=== PATIENT | male | born 1935 | race Hispanic/Latino ===

== ENCOUNTER 2018-01-08 11:45 | Emergency (ER) | payer MEDICARE, OTHER ==
[2018-01-08 11:46] VITALS: PULSE 86
[2018-01-08 12:07] VITALS: BMI 24.3
--- NOTE | 2018-01-08 12:20 | ED PDOC ---
Arrival/HPI - General Chief Complaint: Trauma Time Seen by Provider: 01/08/18 11:47 Historian: Patient - History of Present Illness Narrative History of Present Illness (Text): 01/08/18 12:17 82yo male with PMHx of Alzheimer's present with complaint of scalp laceration s/ p trauma. The daughter and the by the bedside states patient hit his head on a cabinet, when he tried to stand up from a sitting position. The daughter is not sure of LOC. Pt is not UTD with his TD vaccine. Pt is a poor historian, not able to tell if he had LOC. Past Medical History - Provider Review Nursing Documentation Reviewed: Yes - Infectious Disease Hx of Infectious Diseases: None - Tetanus Immunization Tetanus Immunization: Unknown - Cardiac Hx Cardiac Disorders: Yes - Pulmonary Hx Respiratory Disorders: Yes Hx Bronchitis: Yes - Neurological Hx Neurological Disorder: Yes Hx Alzheimer's Disease: Yes Hx Dementia: Yes - HEENT Hx HEENT Disorder: No - Renal Hx Renal Disorder: No - Endocrine/Metabolic Hx Endocrine Disorders: No - Hematological/Oncological Hx Blood Disorders: No - Integumentary Hx Dermatological Disorder: No - Musculoskeletal/Rheumatological Hx Falls: No - Gastrointestinal Hx Gastrointestinal Disorders: Yes Hx Colostomy: Yes - Genitourinary/Gynecological Hx Reproductive Disorders: No - Psychiatric Hx Psychophysiologic Disorder: No Hx Substance Use: No - Surgical History Other/Comment: coloctomy,henia repai,right kidney - Anesthesia Hx Anesthesia: Yes Hx Anesthesia Reactions: No Hx Malignant Hyperthermia: No - Suicidal Assessment Feels Threatened In Home Enviroment: No Family/Social History - Physician Review Nursing Documentation Reviewed: Yes Family/Social History: Unknown Family HX Smoking Status: Former Smoker Hx Alcohol Use: No Hx Substance Use: No Allergies/Home Meds Allergies/Adverse Reactions: Allergies No Known Allergies Allergy (Verified 09/01/14 16:44) Home Medications: Home Meds Medication Instructions Recorded Confirmed Rivastigmine 9.5 mg/24 hr [Exelon 9.5 mg TD DAILY 09/01/14 01/08/18 9.5 mg/24 hr Patch] Aspirin [Ecotrin] 325 mg PO DAILY 01/08/18 01/08/18 D3 1000 1,000 iu PO DAILY 01/08/18 01/08/18 Folic Acid 1 mg PO DAILY 01/08/18 01/08/18 Lorazepam [Ativan] 2 mg PO ONCE 01/08/18 01/08/18 Memantine HCl [Namenda Xr] 28 mg PO DAILY 01/08/18 01/08/18 [place]-3 Fatty Acids/Fish Oil [Fish 1,000 mg PO DAILY 01/08/18 01/08/18 Oil 1,000 mg Softgel] Sertraline [Zoloft] 25 mg PO DAILY 01/08/18 01/08/18 Simvastatin [Zocor] 20 mg PO DAILY 01/08/18 01/08/18 Vanda C 1,000 mg PO DAILY 01/08/18 01/08/18 l-Mefol/A-Cyst/Meb12/Algal Oil 1 tab PO DAILY 01/08/18 01/08/18 [Cerefolinnac] Review of Systems - Physician Review All systems were reviewed & negative as marked: Yes - Review of Systems Constitutional: Normal Eyes: Normal ENT: Normal Respiratory: Normal Cardiovascular: Normal Gastrointestinal: Normal Genitourinary Male: Normal Musculoskeletal: Normal Skin: Laceration (scalp) Neurological: Normal Endocrine: Normal Hemo/Lymphatic: Normal Psychiatric: Normal Physical Exam Vital Signs Reviewed: Yes Vital Signs Temp Pulse Resp BP Pulse Ox 01/08/18 13:45 64 18 148/71 98 01/08/18 12:20 98.0 F 68 18 150/78 98 Temperature: Afebrile Blood Pressure: Normal Pulse: Regular Respiratory Rate: Normal Appearance: Positive for: Well-Appearing, Non-Toxic, Comfortable Pain Distress: None Mental Status: Positive for: Alert and Oriented X 3 - Systems Exam Head: Present: Atraumatic, Normocephalic Pupils: Present: PERRL Extroacular Muscles: Present: EOMI Conjunctiva: Present: Normal Mouth: Present: Moist Mucous Membranes Neck: Present: Normal Range of Motion Respiratory/Chest: Present: Clear to Auscultation, Good Air Exchange. No: Respiratory Distress, Accessory Muscle Use Cardiovascular: Present: Regular Rate and Rhythm, Normal S1, S2. No: Murmurs Abdomen: Present: Normal Bowel Sounds. No: Tenderness, Distention, Peritoneal Signs Back: Present: Normal Inspection Upper Extremity: Present: Normal Inspection. No: Cyanosis, Edema Lower Extremity: Present: Normal Inspection. No: Edema Neurological: Present: GCS=15, CN II-XII Intact, Speech Normal, Motor Func Grossly Intact, Normal Sensory Function, Other (No focal neurological deficit) Skin: Present: Warm, Dry, Normal Color, Laceration (3.0cm linear laceration on frontal scalp and superficial bruise also noted on the frontal scalp). No: Rashes Psychiatric: Present: Alert, Normal Insight, Normal Concentration. No: Oriented x 3 (2) Medical Decision Making ED Course and Treatment: 01/08/18 19:49 PT in ED for stated history. He as neurologically intact in ED. Laceration was irrigated with NS and approximated with 7 dinah. Pt tolerated . Bacitracine applied and dressed. - RAD Interpretation Radiology Orders: 01/08/18 12:15 HEAD W/O CONTRAST [CT] Stat - Medication Orders Current Medication Orders: Discontinued Medications Acetaminophen (Tylenol 325mg Tab) 650 mg PO STAT STA Stop: 01/08/18 12:16 Last Admin: 01/08/18 12:38 Dose: 650 mg MAR Pain/Vitals Document 01/08/18 12:38 EQ (Rec: 01/08/18 12:38 EQ [id number]) Pain Reassessment Is This A Pain ReAssessment? No Sleep Is patient sleeping during reassessment? No Presence of Pain Presence of Pain Yes Pain Scale Used Pain Scale Used Numeric Location Pain Location Body Medical Technologist Generalist Tetanus/Reduced Diphtheria/Acell Pertussis (Boostrix Vaccine Inj) 0.5 ml IM .ONCE ONE Stop: 01/08/18 13:32 Last Admin: 01/08/18 13:49 Dose: 0.5 ml Immunization Registry Document 01/08/18 13:49 EQ (Rec: 01/08/18 13:49 EQ [id number]) Immunization Registry Consent Date 01/08/18 Procedure: Wound Repair - Consent Obtained Consent obtained: Verbal - Performed by Performed by: Mid-level Provider - Indications Indication(s):: Laceration - Location Location:: Scalp Shape:: Linear Dimensions Length cm: 3.0 - Debris Debris:: None - Complexity Complexity:: Intermediate (2 layer) - Wound repair method [place]:: Tissue glue (7staples) - Muscle repiar layer closed with Muscle repair layer closed with:: Wound well approximated, Abx ointment applied , Tetanus ordered - Patient tolerated procedure Patient Tolerated Procedure:: Well Disposition/Present on Arrival - Present on Arrival Any Indicators Present on Arrival: No History of DVT/PE: No History of Uncontrolled Diabetes: No Urinary Catheter: No History of Decub. Ulcer: No History Surgical Site Infection Following: None - Disposition Have Diagnosis and Disposition been Completed?: Yes Diagnosis: Scalp laceration Disposition: HOME/ ROUTINE Disposition Time: 13:30 Patient Plan: Discharge Condition: STABLE Discharge Instructions (ExitCare): Laceration Repair With [place] (DC) Additional Instructions: Keep wound clean and dry Follow up with your Doctor in 5 to 6days for dinah removal Return to ED for purulent discharge, fever, redness Referrals: Star Sosa MD [Primary Care Provider] - Follow up with primary Forms: [place] (Arabic)
[2018-01-08 12:39] VITALS: RESP 18; TEMP 98; O2SAT 98
--- NOTE | 2018-01-08 12:43 | CT ---
PROCEDURE: CT HEAD WITHOUT CONTRAST. HISTORY: head injury COMPARISON: 09/01/2014 TECHNIQUE: Axial computed tomography images were obtained through the head/brain without intravenous contrast. Radiation dose: Total exam DLP = 903 mGy-cm. This CT exam was performed using one or more of the following dose reduction techniques: Automated exposure control, adjustment of the mA and/or kV according to patient size, and/or use of iterative reconstruction technique. FINDINGS: HEMORRHAGE: No intracranial hemorrhage. BRAIN: No mass effect or edema. Moderate atrophy VENTRICLES: Unremarkable. No hydrocephalus. CALVARIUM: Unremarkable. PARANASAL SINUSES: Unremarkable as visualized. No significant inflammatory changes. MASTOID AIR CELLS: Unremarkable as visualized. No inflammatory changes. OTHER FINDINGS: None. IMPRESSION: No acute findings
[2018-01-08] MEDS ORDERED: TDAP Vaccine 0.5 mL Syr IM ONE (13:31)
[2018-01-08 13:45] VITALS: BP 148/71; PULSE 64
== END 2018-01-08 13:59 | disposition home or self-care (01) ==
LOC: ED 11:45
DX: S01.01XA Laceration without foreign body of scalp, initial encounter (principal); W22.8XXA Striking against or struck by other objects, initial encounter; G30.9 Alzheimer's disease, unspecified; Z87.891 Personal history of nicotine dependence; Z93.3 Colostomy status; Z23 Encounter for immunization

== ENCOUNTER 2018-12-14 13:57 | Inpatient (IN) | payer MEDICARE, OTHER ==
[2018-12-14 13:57] VITALS: PULSE 86
[2018-12-14 14:02] VITALS: BMI 23.5
[2018-12-14] MEDS ORDERED: Albuterol-Ipratrop 3 mg / 0.5 (3 ml) UD IH STA (14:23)
--- NOTE | 2018-12-14 14:28 | ED PDOC ---
Arrival/HPI - General Chief Complaint: Cough, Cold, Congestion Time Seen by Provider: 12/14/18 14:05 Historian: Patient, Spouse, Brake Repairer - History of Present Illness Time/Duration: Other (2 days) Symptom Onset: Gradual Symptom Course: Worsening Severity Level: Moderate Associated Symptoms (Text): 12/14/18 14:24 History of dementia and a poor historian. Patient speaks Wolof. translates. She reports a 2-day history of a cough congestion URI shortness of breath and increasing weakness and fatigue with an altered mental status today. Denies fever. No vomiting or diarrhea. No sputum production. No travel or exposure. Past Medical History - Infectious Disease Hx of Infectious Diseases: None - Tetanus Immunization Tetanus Immunization: Unknown - Cardiac Hx Cardiac Disorders: Yes - Pulmonary Hx Respiratory Disorders: Yes Hx Bronchitis: Yes - Neurological Hx Neurological Disorder: Yes Hx Alzheimer's Disease: Yes Hx Dementia: Yes - HEENT Hx HEENT Disorder: No - Renal Hx Renal Disorder: No - Endocrine/Metabolic Hx Endocrine Disorders: No - Hematological/Oncological Hx Blood Disorders: No - Integumentary Hx Dermatological Disorder: No - Musculoskeletal/Rheumatological Hx Falls: No - Gastrointestinal Hx Gastrointestinal Disorders: Yes Hx Colostomy: Yes - Genitourinary/Gynecological Hx Reproductive Disorders: No - Psychiatric Hx Psychophysiologic Disorder: No Hx Substance Use: No - Surgical History Other/Comment: coloctomy,henia repai,right kidney - Anesthesia Hx Anesthesia: Yes Hx Anesthesia Reactions: No Hx Malignant Hyperthermia: No - Suicidal Assessment Feels Threatened In Home Enviroment: No Family/Social History - Physician Review Nursing Documentation Reviewed: Yes Family/Social History: Unknown Family HX Smoking Status: Former Smoker Hx Alcohol Use: No Hx Substance Use: No Allergies/Home Meds Allergies/Adverse Reactions: Allergies No Known Allergies Allergy (Verified 09/01/14 16:44) Home Medications: Home Meds Medication Instructions Recorded Confirmed Rivastigmine 9.5 mg/24 hr [Exelon 9.5 mg TD DAILY 09/01/14 12/14/18 9.5 mg/24 hr Patch] Aspirin [Ecotrin] 325 mg PO DAILY 01/08/18 12/14/18 D3 1000 1,000 iu PO DAILY 01/08/18 01/08/18 Folic Acid 1 mg PO DAILY 01/08/18 12/14/18 Memantine HCl [Namenda Xr] 28 mg PO DAILY 01/08/18 12/14/18 [place]-3 Fatty Acids/Fish Oil [Fish 1,000 mg PO DAILY 01/08/18 12/14/18 Oil 1,000 mg Softgel] Sertraline [Zoloft] 75 mg PO DAILY 01/08/18 12/14/18 Simvastatin [Zocor] 20 mg PO DAILY 01/08/18 12/14/18 Vanda C 1,000 mg PO DAILY 01/08/18 01/08/18 l-Mefol/A-Cyst/Meb12/Algal Oil 1 tab PO DAILY 01/08/18 12/14/18 [Cerefolinnac] Review of Systems - Review of Systems Systems not reviewed;Unavailable: Dementia Physical Exam Vital Signs Temp Pulse Resp BP Pulse Ox 12/14/18 14:05 97.9 F 90 16 98/64 L 95 Temperature: Afebrile Blood Pressure: Hypotensive Pulse: Regular Respiratory Rate: Normal Appearance: Positive for: Well-Appearing, Non-Toxic, Comfortable Pain Distress: None Mental Status: Positive for: Confused - Systems Exam Head: Present: Atraumatic, Normocephalic Pupils: Present: PERRL Extroacular Muscles: Present: EOMI Conjunctiva: Present: Normal Ears: Present: NORMAL TM, Normal Canal. No: Erythema, TM Bulging Mouth: Present: Moist Mucous Membranes Pharnyx: No: ERYTHEMA, EXUDATE, TONSILS ENLARGED Respiratory/Chest: Present: Decreased Breath Sounds. No: Respiratory Distress, Accessory Muscle Use, Wheezes, Rales, Retracting, Rhonchi, Tachypneic, Tender to Palpation Cardiovascular: Present: Normal S1, S2, Irregular Rhythm. No: Murmurs Abdomen: No: Tenderness, Distention, Peritoneal Signs, Rebound, Guarding Upper Extremity: Present: Normal Inspection. No: Cyanosis, Edema Lower Extremity: Present: Normal Inspection. No: Edema Neurological: Present: GCS=15, CN II-XII Intact, Speech Normal, Motor Func Grossly Intact Skin: Present: Warm, Dry, Pale. No: Rashes Medical Decision Making ED Course and Treatment: 12/14/18 14:26 EKG shows atrial fibrillation rate approximately [address] or T wave changes. 12/14/18 16:18 Dr. Garcia will admit to Dr. Sosa's service on telemetry observation. 12/14/18 16:38 Procedure: Chest X-ray Dictator: Ishmael Corral Impression: No active disease. - RAD Interpretation Radiology Orders: 12/14/18 14:22 CHEST PORTABLE [RAD] Stat - Medication Orders Current Medication Orders: Albuterol/Ipratropium (Duoneb 3 Mg/0.5 Mg (3 Ml) Ud) 3 ml IH ONCE STA Stop: 12/14/18 14:24 Disposition/Present on Arrival - Present on Arrival Any Indicators Present on Arrival: No History of DVT/PE: No History of Uncontrolled Diabetes: No Urinary Catheter: No History of Decub. Ulcer: No History Surgical Site Infection Following: None - Disposition Have Diagnosis and Disposition been Completed?: Yes Diagnosis: Atrial fibrillation, Congestive heart failure, Altered mental status, Dyspnea Disposition: HOSPITALIZED Disposition Time: 16:20 Patient Plan: Observation, Telemetry Patient Problems: Current Active Problems Problem Status Onset Altered mental status Acute Atrial fibrillation Acute Congestive heart failure Acute Dyspnea Acute Condition: FAIR
[2018-12-14 14:55] LABS: BASO # 0.02 K/mm3 (0.0-2.0); BASO % 0.2 % (0.0-3.0); EOS % 0.3 % (1.5-5.0); HEMOGLOBIN 13.1 g/dL (14.0-18.0); LYMPH # 1.1 (1.2-3.4); LYMPH % 8.3 % (22.0-35.0); MEAN CELL VOLUME 96.9 fl (80.0-105.0); MEAN CORPUSCULAR HEMOGLOBIN 31.5 pg (25.0-35.0); MEAN CORPUSCULAR HGB CONC 32.5 g/dl (31.0-37.0); MEAN PLATELET VOLUME 11.3 fl (7.0-11.0); RBC 4.16 10^6/uL (3.5-6.1); WHITE BLOOD COUNT 13.1 10^3/uL (4.5-11.0)
[2018-12-14 15:04] LABS: INR 1.16; PARTIAL THROMBOPLASTIN TIME 36.1 Seconds (26.9-38.3); PROTHROMBIN TIME 12.9 SECONDS (9.4-12.5)
[2018-12-14 15:07] LABS: VENOUS BLOOD GAS BASE EXCESS 7.4 mmol/L (0.0-2.0); VENOUS BLOOD GAS PO2 34 mm/Hg (30-55); VENOUS BLOOD PH 7.36 (7.32-7.43)
[2018-12-14 15:10] LABS: ALBUMIN 3.9 g/dL (3.0-4.8); ALT/SGPT 18 U/L (7-56); AST/SGOT 31 U/L (17-59); BLOOD UREA NITROGEN 24 mg/dL (7-21); CALCIUM 9.4 mg/dL (8.4-10.5); GFR NON-AFRICAN AMERICAN > 60
[2018-12-14 15:18] LABS: TROPONIN I < 0.01 ng/mL
[2018-12-14 16:05] LABS: B-TYPE NATRIURETIC PEPTIDE 2980 pg/mL (0-450)
--- NOTE | 2018-12-14 16:13 | RAD ---
Date of service: 12/14/2018 HISTORY: Sepsis Patient COMPARISON: No prior. FINDINGS: LUNGS: No active pulmonary disease. PLEURA: No significant pleural effusion identified, no pneumothorax apparent. CARDIOVASCULAR: Aortic calcification Mild cardiomegaly. No pulmonary vascular congestion. OSSEOUS STRUCTURES: No significant abnormalities. VISUALIZED UPPER ABDOMEN: Normal. OTHER FINDINGS: None. IMPRESSION: No active disease.
[2018-12-14 16:34] LABS: URINE BILIRUBIN NEGATIVE (NEGATIVE); URINE BLOOD NEGATIVE (NEGATIVE); URINE GLUCOSE (UA) NEGATIVE (NEGATIVE); URINE LEUKOCYTE ESTERASE NEGATIVE Leu/uL (NEGATIVE); URINE PROTEIN NEGATIVE mg/dL (<30 mg/dL); URINE UROBILINOGEN 0.2 E.U./dL (<1 E.U./dL)
[2018-12-14 16:36] LABS: URINE APPEARANCE CLEAR (CLEAR); URINE COLOR YELLOW (YELLOW)
[2018-12-14] MEDS ORDERED: Influenza Vaccine 60 mcg/0.5 mL SYR (4YR UP) IM ONE (20:44)
[2018-12-14] MEDS ORDERED: Pneumococcal 23-Valent Vaccine IM ONE (20:44)
--- NOTE | 2018-12-14 23:22 | CARD ---
APPROVED REPORT Date of service: 12/14/2018 EKG Measurement Heart [id number] <Conclusion> Atrial fibrillation Left axis deviation Abnormal ECG
[2018-12-15 09:16] LABS: HEMOGLOBIN 14.1 g/dL (14.0-18.0); MEAN CELL VOLUME 96.8 fl (80.0-105.0); MEAN CORPUSCULAR HEMOGLOBIN 31.8 pg (25.0-35.0); MEAN CORPUSCULAR HGB CONC 32.8 g/dl (31.0-37.0); MEAN PLATELET VOLUME 11.5 fl (7.0-11.0); RBC 4.44 10^6/uL (3.5-6.1); RED CELL DISTRIBUTION WIDTH 13.9 % (11.5-14.5); WHITE BLOOD COUNT 13.7 10^3/uL (4.5-11.0)
[2018-12-15 09:32] LABS: ALBUMIN 4.2 g/dL (3.0-4.8); ALT/SGPT 24 U/L (7-56); AST/SGOT 35 U/L (17-59); BLOOD UREA NITROGEN 30 mg/dL (7-21); CALCIUM 9.9 mg/dL (8.4-10.5); GFR NON-AFRICAN AMERICAN > 60
[2018-12-15 09:42] LABS: TROPONIN I < 0.01 ng/mL
[2018-12-15] MEDS ORDERED: MEMANTINE HCL 28 MG PO SCH (10:00)
[2018-12-15] MEDS: cefTRIAXone 1 gm 1 GM/100 ML BAG IVPB SCH (10:18)
[2018-12-15] MEDS: Aspirin 325 mg EC Tablets PO SCH (10:19)
[2018-12-15] MEDS: Enoxaparin 40 mg Syringe SC SCH (10:19)
--- NOTE | 2018-12-15 10:21 | CP.PCM.HP ---
<Brian Tracey - Last Filed: 12/15/18 10:23> History of Present Illness - History of Present Illness History of Present Illness: H&P for Dr Garcia: 83-year-old male with past history of CHF, dementia, hyperlipidemia, colon cancer with colostomy, presents with cough, congestion, and weakness. Patient is a Amharic speaking and the at bedside translating. The patient's symptoms initially started 1 week ago and the coughing along with the weakness has gotten progressively worse. The cough is productive with green sputum. He denied any chest pain or shortness of breath. No fevers, chills, body aches at home. A complete 12 point ROS limited due to dementia PMH: As above PSH: Colostomy, hernia repair, pilonidal cyst Medications: Refer to MAR Allergies: No known allergies SH: Patient is a former smoker of 40 years, quit 18 years ago, denies any alcohol or drug use FH: Denies Present on Admission - Present on Admission Any Indicators Present on Admission: No Review of Systems - Review of Systems Systems not reviewed;Unavailable: Dementia Past Patient History - Infectious Disease Hx of Infectious Diseases: None - Tetanus Immunizations Tetanus Immunization: Unknown - Past Social History Smoking Status: Former Smoker - CARDIAC Hx Cardiac Disorders: Yes (afib) Hx Cardia Arrhythmia: Yes Hx Hypercholesterolemia: Yes - PULMONARY Hx Respiratory Disorders: Yes Hx Bronchitis: Yes Hx Chronic Obstructive Pulmonary Disease (COPD): Yes Hx Pneumonia: Yes - NEUROLOGICAL Hx Neurological Disorder: Yes Hx Alzheimer's Disease: Yes Hx Dementia: Yes - HEENT Hx HEENT Problems: No - RENAL Hx Chronic Kidney Disease: Yes Other/Comment: 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, 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 "ball of water" as stated by family that was in place of right kidney - ENDOCRINE/METABOLIC Hx Endocrine Disorders: No - HEMATOLOGICAL/ONCOLOGICAL Hx Blood Disorders: Yes Hx Cancer: Yes (colon ca dx 1984) Other/Comment: colon resection with colostomy 1984 followed by light therapy chemo injections - INTEGUMENTARY Hx Dermatological Problems: Yes Other/Comment: red buttocks no openings - MUSCULOSKELETAL/RHEUMATOLOGICAL Hx Musculoskeletal Disorders: Yes (rheumatoid arthritis) Hx Falls: Yes (past) Hx Unsteady Gait: Yes (human assistance) - GASTROINTESTINAL Hx Gastrointestinal Disorders: Yes Hx Colostomy: Yes (since 1984) - GENITOURINARY/GYNECOLOGICAL Hx Genitourinary Disorders: Yes Hx Incontinence: Yes (urine) Hx Prostate Problems: Yes (bph) - PSYCHIATRIC Hx Psychophysiologic Disorder: No Hx Substance Use: No - SURGICAL HISTORY Hx Surgeries: Yes Other/Comment: colostomy,hernia repair - ANESTHESIA Hx Anesthesia: Yes Hx Anesthesia Reactions: No Hx Malignant Hyperthermia: No Meds Allergies/Adverse Reactions: Allergies Allergy/AdvReac Type Severity Reaction Status Date / Time No Known Allergies Allergy Verified 09/01/14 16:44 Physical Exam - Constitutional Appears: No Acute Distress - Head Exam Head Exam: ATRAUMATIC, NORMOCEPHALIC - Eye Exam Eye Exam: EOMI, PERRL - ENT Exam ENT Exam: Mucous Membranes Moist - Respiratory Exam Respiratory Exam: Clear to Auscultation Bilateral, Rhonchi (L base). absent: Rales, Wheezes - Cardiovascular Exam Cardiovascular Exam: REGULAR RHYTHM, +S1, +S2 - GI/Abdominal Exam GI & Abdominal Exam: Normal Bowel Sounds, Soft. absent: Tenderness - Extremities Exam Extremities exam: Negative for: calf tenderness, pedal edema - Neurological Exam Neurological exam: Alert, CN II-XII Intact - Psychiatric Exam Psychiatric exam: Normal Mood - Skin Skin Exam: Dry, Warm Results - Vital Signs Recent Vital Signs: Last Vital Signs Temp 98.4 F 12/15/18 05:59 Pulse 86 12/15/18 05:59 Resp 18 12/15/18 05:59 BP 122/64 12/15/18 05:59 Pulse Ox 95 12/15/18 05:59 - Labs Result Diagrams: 12/15/18 09:00 12/15/18 09:00 Labs: Laboratory Results - last 24 hr 12/14/18 12/14/18 12/14/18 14:41 14:50 14:50 WBC 13.1 H RBC 4.16 Hgb 13.1 L Hct 40.3 L MCV 96.9 MCH 31.5 MCHC 32.5 RDW 14.0 Plt Count 182 MPV 11.3 H Neut % (Auto) 76.2 H Lymph % (Auto) 8.3 L [place] % (Auto) 15.0 H Eos % (Auto) 0.3 L Baso % (Auto) 0.2 Lymph # (Auto) 1.1 L [place] # (Auto) 2.0 H Eos # (Auto) 0.0 Baso # (Auto) 0.02 Absolute Neuts (auto) 9.95 H PT 12.9 H INR 1.16 APTT 36.1 pO2 34 VBG pH 7.36 VBG pCO2 62.0 H VBG HCO3 35.0 H VBG Total CO2 36.9 H VBG O2 Sat (Calc) 72.9 H VBG Base Excess 7.4 H VBG Potassium 3.9 Sodium 143.0 Chloride 104.0 Glucose 99 Lactate 1.0 FiO2 21.0 Potassium Carbon Dioxide Anion Gap BUN Creatinine Est GFR ( Amer) Est GFR (Non-Af Amer) Random Glucose Calcium Phosphorus Magnesium Total Bilirubin AST ALT Alkaline Phosphatase Troponin I NT-Pro-B Natriuret Pep Total Protein Albumin Globulin Albumin/Globulin Ratio Venous Blood Potassium 3.9 Urine Color Urine Appearance Urine pH Ur Specific [place] Urine Protein Urine Glucose (UA) Urine Ketones Urine Blood Urine Nitrate Urine Bilirubin Urine Urobilinogen Ur Leukocyte Esterase Influenza Typ A,B (EIA) 12/14/18 12/14/18 12/14/18 14:50 14:50 16:14 WBC RBC Hgb Hct MCV MCH MCHC RDW Plt Count MPV Neut % (Auto) Lymph % (Auto) [place] % (Auto) Eos % (Auto) Baso % (Auto) Lymph # (Auto) [place] # (Auto) Eos # (Auto) Baso # (Auto) Absolute Neuts (auto) PT INR APTT pO2 VBG pH VBG pCO2 VBG HCO3 VBG Total CO2 VBG O2 Sat (Calc) VBG Base Excess VBG Potassium Sodium 142 Chloride 102 Glucose Lactate FiO2 Potassium 4.1 Carbon Dioxide 33 Anion Gap 11 BUN 24 H Creatinine 1.0 Est GFR ( Amer) > 60 Est GFR (Non-Af Amer) > 60 Random Glucose 97 Calcium 9.4 Phosphorus 3.3 Magnesium 2.1 Total Bilirubin 0.8 AST 31 ALT 18 Alkaline Phosphatase 103 Troponin I < 0.01 NT-Pro-B Natriuret Pep 2980 H Total Protein 7.8 Albumin 3.9 Globulin 3.9 Albumin/Globulin Ratio 1.0 L Venous Blood Potassium Urine Color Yellow Urine Appearance Clear Urine pH 6.0 Ur Specific [place] >= 1.030 Urine Protein Negative Urine Glucose (UA) Negative Urine Ketones Trace H Urine Blood Negative Urine Nitrate Negative Urine Bilirubin Negative Urine Urobilinogen 0.2 Ur Leukocyte Esterase Negative Influenza Typ A,B (EIA) Negative for flu a/b 12/15/18 12/15/18 09:00 09:00 WBC 13.7 H RBC 4.44 Hgb 14.1 Hct 43.0 MCV 96.8 MCH 31.8 MCHC 32.8 RDW 13.9 Plt Count 192 MPV 11.5 H Neut % (Auto) Lymph % (Auto) [place] % (Auto) Eos % (Auto) Baso % (Auto) Lymph # (Auto) [place] # (Auto) Eos # (Auto) Baso # (Auto) Absolute Neuts (auto) PT INR APTT pO2 VBG pH VBG pCO2 VBG HCO3 VBG Total CO2 VBG O2 Sat (Calc) VBG Base Excess VBG Potassium Sodium 141 Chloride 99 Glucose Lactate FiO2 Potassium 4.1 Carbon Dioxide 36 H Anion Gap 11 BUN 30 H Creatinine 1.0 Est GFR ( Amer) > 60 Est GFR (Non-Af Amer) > 60 Random Glucose 150 H Calcium 9.9 Phosphorus Magnesium Total Bilirubin 0.9 AST 35 ALT 24 Alkaline Phosphatase 114 Troponin I < 0.01 NT-Pro-B Natriuret Pep Total Protein 8.3 Albumin 4.2 Globulin 4.1 Albumin/Globulin Ratio 1.0 L Venous Blood Potassium Urine Color Urine Appearance Urine pH Ur Specific [place] Urine Protein Urine Glucose (UA) Urine Ketones Urine Blood Urine Nitrate Urine Bilirubin Urine Urobilinogen Ur Leukocyte Esterase Influenza Typ A,B (EIA) Assessment & Plan - Assessment and Plan (Free Text) Assessment: SIRS criteria (tachycardia and leukocytosis) likely 2/2 community acquired pneumonia Congestive heart failure Hyperlipidemia Depression Dementia Patient was started on Rocephin and Doxycycline for community-acquired pneumonia. He was started on benzonatate for his cough. Lasix 40 mg daily was started for his CHF. BNP has been elevated 2980. Echo has been ordered we will follow-up results. Echo in 2013 showed ejection fraction 40%. Serial troponins been negative. Cardiology has been consulted awaiting recommendations. Cont with aspirin. Follow-up septic workup. Influenza neg. F/u procalcitonin. Continue with Zoloft for his depression. Follow-up lipid panel. Continue with home memantine for his dementia. Continue to monitor for any changes. Case and plan was reviewed and discussed with Dr. Garcia. <Kendrick Garcia - Last Filed: 12/15/18 20:41> Results - Vital Signs Recent Vital Signs: Last Vital Signs Temp 98.6 F 12/15/18 18:00 Pulse 91 H 12/15/18 18:00 Resp 18 12/15/18 18:00 BP 114/67 12/15/18 18:00 Pulse Ox 98 12/15/18 18:00 - Labs Result Diagrams: 12/15/18 09:00 12/15/18 09:00 Labs: Laboratory Results - last 24 hr 12/15/18 12/15/18 12/15/18 07:00 09:00 09:00 WBC 13.7 H RBC 4.44 Hgb 14.1 Hct 43.0 MCV 96.8 MCH 31.8 MCHC 32.8 RDW 13.9 Plt Count 192 MPV 11.5 H Sodium 141 Potassium 4.1 Chloride 99 Carbon Dioxide 36 H Anion Gap 11 BUN 30 H Creatinine 1.0 Est GFR ( Amer) > 60 Est GFR (Non-Af Amer) > 60 Random Glucose 150 H Calcium 9.9 Total Bilirubin 0.9 AST 35 ALT 24 Alkaline Phosphatase 114 Troponin I < 0.01 Total Protein 8.3 Albumin 4.2 Globulin 4.1 Albumin/Globulin Ratio 1.0 L Triglycerides Cholesterol LDL Cholesterol Direct HDL Cholesterol Procalcitonin 0.60 H 12/15/18 09:00 WBC RBC Hgb Hct MCV MCH MCHC RDW Plt Count MPV Sodium Potassium Chloride Carbon Dioxide Anion Gap BUN Creatinine Est GFR ( Amer) Est GFR (Non-Af Amer) Random Glucose Calcium Total Bilirubin AST ALT Alkaline Phosphatase Troponin I Total Protein Albumin Globulin Albumin/Globulin Ratio Triglycerides 78 Cholesterol 227 H LDL Cholesterol Direct 115 HDL Cholesterol 53 Procalcitonin Assessment & Plan - Assessment and Plan (Free Text) Assessment: Pt seen and examined by me. I have reviewed the note of the pediatric medical assistant and I agree with it. I have discussed the assessment and plan with the resident. I have reviewed the medications and the last labs.Pt with CAP and is on Rocephin. He has CHF- systolic dysfunction and is on Lasix. Cardio consulted. 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 He will be on Zoloft for depression.
[2018-12-15 11:48] LABS: HDL CHOLESTEROL 53 mg/dL (29-60)
[2018-12-15 11:59] LABS: LDL CHOLESTEROL 115 mg/dL (0-129)
--- NOTE | 2018-12-15 18:49 | CARD ---
APPROVED REPORT Date of service: 12/15/2018 EXAM: Two-dimensional and M-mode echocardiogram with Doppler and color Doppler. INDICATION Dyspnea 2D DIMENSIONS IVSd1.1 (0.7-1.1cm)LVDd3.6 (3.9-5.9cm) PWd1.1 (0.7-1.1cm) M-Mode DIMENSIONS Aortic Root3.30 (2.2-3.7cm)Aortic Cusp Exc.1.60 (1.5-2.0cm) Mitral Valve E/A ratio0.0 TDI E/Lateral E'0.0E/Medial E'0.0 Pulmonary Valve PV Peak Oaojbchl91.9cm/sPV Peak Grad.1mmHg Tricuspid Valve TR Peak [id number]/sRAP [id number] Peak Gr.14mmHg [id number] LEFT VENTRICLE The left ventricle is normal size. There is normal left ventricular wall thickness. The left ventricular function is normal. The left ventricular ejection fraction is within the normal range. No left ventricle thrombus noted on this study. There is no ventricular septal defect visualized. RIGHT VENTRICLE The right ventricle is mildly dilated. There is normal right ventricular wall thickness. The right ventricular systolic function is normal. ATRIA The left atrium is mildly dilated. The right atrium is mildly dilated. AORTIC VALVE The aortic valve is not well visualized. No aortic regurgitation is present. There is no aortic valvular stenosis. MITRAL VALVE The mitral valve is not well visualized. There is no mitral valve regurgitation noted. There is no mitral valve stenosis. TRICUSPID VALVE There is trace tricuspid regurgitation. PULMONIC VALVE The pulmonary valve is normal in structure. There is no pulmonic valvular regurgitation. GREAT VESSELS The aortic root is normal in size. The IVC is normal in size and collapses >50% with inspiration. PERICARDIAL EFFUSION There is a trace pericardial effusion. <Conclusion> The left ventricle is normal size. There is normal left ventricular wall thickness. The left ventricular function is normal. The left ventricular ejection fraction is within the normal range. There is trace tricuspid regurgitation.
[2018-12-16 07:05] LABS: BASO # 0.03 K/mm3 (0.0-2.0); BASO % 0.3 % (0.0-3.0); EOS # 0.2 (0.0-0.7); EOS % 1.9 % (1.5-5.0); HEMOGLOBIN 12.9 g/dL (14.0-18.0); LYMPH # 1.8 (1.2-3.4); LYMPH % 17.2 % (22.0-35.0); MEAN CELL VOLUME 95.7 fl (80.0-105.0); MEAN CORPUSCULAR HEMOGLOBIN 31.2 pg (25.0-35.0); MEAN CORPUSCULAR HGB CONC 32.6 g/dl (31.0-37.0); MEAN PLATELET VOLUME 11.6 fl (7.0-11.0); MONO # 1.1 (0.1-0.6); MONO % 10.6 % (1.0-6.0); RBC 4.14 10^6/uL (3.5-6.1); RED CELL DISTRIBUTION WIDTH 13.8 % (11.5-14.5); WHITE BLOOD COUNT 10.6 10^3/uL (4.5-11.0)
[2018-12-16 07:40] LABS: ALBUMIN 3.6 g/dL (3.0-4.8); ALT/SGPT 29 U/L (7-56); AST/SGOT 37 U/L (17-59); BLOOD UREA NITROGEN 31 mg/dL (7-21); CALCIUM 9.2 mg/dL (8.4-10.5); GFR NON-AFRICAN AMERICAN > 60
[2018-12-16] MEDS: Aspirin 325 mg EC Tablets PO SCH (09:33)
[2018-12-16] MEDS: MEMANTINE HCL 28 MG PO SCH (09:33)
[2018-12-16] MEDS: Enoxaparin 40 mg Syringe SC SCH (09:33)
[2018-12-16] MEDS: cefTRIAXone 1 gm 1 GM/100 ML BAG IVPB SCH (09:34)
--- NOTE | 2018-12-16 10:43 | CP.PCM.PN ---
<Brian Tracey - Last Filed: 12/16/18 10:39> Subjective - Date & Time of Evaluation Date of Evaluation: 12/16/18 Time of Evaluation: 07:30 - Subjective Subjective: Medicine progress note: Patient seen and examined at bedside. No acute events overnight. Patient along with the is still complaining of some cough. Denies any chest pain or shortness of breath. 12 point ROS performed and negative other than stated above Objective - Vital Signs/Intake and Output Vital Signs (last 24 hours): Temp Pulse Resp BP Pulse Ox 98.0 F 77 20 104/49 L 96 12/16/18 06:00 12/16/18 06:00 12/16/18 06:00 12/16/18 09:32 12/16/18 06:00 Intake and Output: 12/16/18 12/16/18 06:59 18:59 Intake Total 720 Balance 720 - Medications Medications: Current Medications Aspirin (Ecotrin) 325 mg PO DAILY [facility] Last Admin: 12/16/18 09:33 Dose: 325 mg Benzonatate (Tessalon Perles) 100 mg PO TID [facility] Last Admin: 12/16/18 09:32 Dose: 100 mg Enoxaparin Sodium (Lovenox) 40 mg SC DAILY [facility]; Protocol Last Admin: 12/16/18 09:33 Dose: 40 mg Furosemide (Lasix) 40 mg IVP DAILY [facility] Last Admin: 12/16/18 09:32 Dose: 40 mg Doxycycline Hyclate 100 mg/ (Sodium Chloride) 100 mls @ 100 mls/hr IVPB Q12 [facility]; Protocol Last Admin: 12/16/18 09:32 Dose: 100 mls/hr Ceftriaxone Sodium (Rocephin 1 Gram Ivpb) 1 gm in 100 mls @ 100 mls/hr IVPB DAILY [facility]; Protocol Last Admin: 12/16/18 09:34 Dose: 100 mls/hr Memantine Hcl [ Namenda Xr] 28 Mg (Home Med) 28 mg PO DAILY [facility] Last Admin: 12/16/18 09:33 Dose: 28 mg Sertraline HCl (Zoloft) 75 mg PO DAILY [facility] Last Admin: 12/16/18 09:32 Dose: 75 mg - Labs Labs: 12/16/18 06:00 12/16/18 06:00 PT 12.9 SECONDS (9.4-12.5) H 02/22/19 14:50 INR 1.16 12/14/18 14:50 APTT 36.1 Seconds (26.9-38.3) 12/14/18 14:50 - Constitutional Appears: No Acute Distress - Head Exam Head Exam: ATRAUMATIC, NORMOCEPHALIC - Eye Exam Eye Exam: EOMI - ENT Exam ENT Exam: Mucous Membranes Moist - Respiratory Exam Respiratory Exam: Clear to Ausculation Bilateral. absent: Rales, Wheezes - Cardiovascular Exam Cardiovascular Exam: REGULAR RHYTHM, +S1, +S2 - GI/Abdominal Exam GI & Abdominal Exam: Soft. absent: Distended, Tenderness Additional comments: Colostomy is CDI with no surrounding erythema. - Extremities Exam Extremities Exam: absent: Calf Tenderness, Pedal Edema - Neurological Exam Neurological Exam: Alert, Awake, Oriented x3 - Psychiatric Exam Psychiatric exam: Normal Mood - Skin Skin Exam: Dry, Warm Assessment and Plan - Assessment and Plan (Free Text) Assessment: SIRS criteria (tachycardia and leukocytosis) likely 2/2 Bronchitis vs community acquired pneumonia Congestive heart failure Hyperlipidemia Depression Dementia Patient is still complaining of cough. CT scan of the chest has been ordered. Continue with Rocephin and Doxycycline for Bronchitis vs community-acquired pneumonia. Continue with Benzonatate for his cough. Lasix 40 mg IVP daily for his CHF. BNP has been elevated 2980. Echo has been ordered - normal EF. Serial troponins been negative. Cardiology has been consulted awaiting recommendations. Cont with aspirin. Follow-up septic workup. Influenza neg. Procalcitonin mildly elevated 0.6. Continue with Zoloft for his depression. Co ntinue with home memantine for his dementia. Continue to monitor for any changes. Case and plan was reviewed and discussed with Dr. Garcia. <Kendrick Garcia - Last Filed: 12/16/18 18:32> Objective - Vital Signs/Intake and Output Vital Signs (last 24 hours): Temp Pulse Resp BP Pulse Ox 98.4 F 86 18 91/54 L 96 12/16/18 12:00 12/16/18 14:00 12/16/18 12:00 12/16/18 12:00 12/16/18 06:00 Intake and Output: 12/16/18 12/16/18 06:59 18:59 Intake Total 720 Balance 720 - Medications Medications: Current Medications Aspirin (Ecotrin) 325 mg PO DAILY [facility] Last Admin: 12/16/18 09:33 Dose: 325 mg Benzonatate (Tessalon Perles) 100 mg PO TID [facility] Last Admin: 12/16/18 17:21 Dose: 100 mg Enoxaparin Sodium (Lovenox) 40 mg SC DAILY [facility]; Protocol Last Admin: 12/16/18 09:33 Dose: 40 mg Furosemide (Lasix) 40 mg IVP DAILY [facility] Last Admin: 12/16/18 09:32 Dose: 40 mg Doxycycline Hyclate 100 mg/ (Sodium Chloride) 100 mls @ 100 mls/hr IVPB Q12 [facility]; Protocol Last Admin: 12/16/18 09:32 Dose: 100 mls/hr Ceftriaxone Sodium (Rocephin 1 Gram Ivpb) 1 gm in 100 mls @ 100 mls/hr IVPB DAILY [facility]; Protocol Last Admin: 12/16/18 09:34 Dose: 100 mls/hr Memantine Hcl [ Namenda Xr] 28 Mg (Home Med) 28 mg PO DAILY [facility] Last Admin: 12/16/18 09:33 Dose: 28 mg Sertraline HCl (Zoloft) 75 mg PO DAILY [facility] Last Admin: 12/16/18 09:32 Dose: 75 mg - Labs Labs: 12/16/18 06:00 12/16/18 06:00 PT 12.9 SECONDS (9.4-12.5) H 12/14/18 14:50 INR 1.16 12/14/18 14:50 APTT 36.1 Seconds (26.9-38.3) 12/14/18 14:50 Assessment and Plan - Assessment and Plan (Free Text) Assessment: Pt seen and examined by me. I have reviewed the note of the medical pathologist and I agree with it. I have discussed the assessment and plan with the resident. I have reviewed the medications and the last labs.
--- NOTE | 2018-12-16 13:36 | CON ---
DATE OF CONSULTATION: 12/16/2018 REQUESTING PHYSICIAN: Dr. Garcia REASON FOR CONSULTATION: Dyspnea. HISTORY: This is an 83-year-old male well known to me with a history of chronic atrial fibrillation, prior colon cancer resection and dementia, who was brought to the emergency room by his family with complaints of cough and weakness. The patient has dementia and is minimally communicative. He was seen in bed on telemetry in the presence of his . She states that his cough was productive of colored sputum. He had no chest pain. PAST HISTORY: Notable for prior colon cancer resection with colostomy. He has a history of hyperlipidemia and COPD as well. He does have chronic atrial fibrillation. He has a solitary kidney and arthritis. He has undergone a prior herniorrhaphy as well. FAMILY HISTORY: Both parents are , cause unknown. SOCIAL HISTORY: He is a former smoker. He does not drink. He is , lives with his . He is retired. MEDICATIONS AT HOME: Aspirin, Exelon, Namenda, Zocor and Zoloft. He is not on anticoagulant therapy because of prior bleeding issues and risk of falls. ALLERGIES: NONE. REVIEW OF SYSTEMS: A 10-point review of systems is limited, but otherwise unremarkable. PHYSICAL EXAMINATION: GENERAL: He is a thin elderly man. VITAL SIGNS: His blood pressure is 122/61; pulse is 76, in atrial fibrillation; respirations are 14; he is afebrile. HEENT: Head normocephalic, atraumatic. NECK: Supple. No JVD noted. CHEST: Bilateral scattered rhonchi heard. No rales noted. HEART: PMI displaced laterally with an irregularly irregular rhythm. No pathologic murmurs or gallops heard. ABDOMEN: Soft, nontender, with normoactive bowel sounds. EXTREMITIES: No clubbing, cyanosis or edema. SKIN: Warm and dry. PSYCHIATRIC: Cooperative, but unable to fully assess. NEUROLOGIC: Moving all four extremities. DIAGNOSTIC DATA: Potassium is 3.8. BUN and creatinine are 31 and 0.9. White count 10.6, hemoglobin 12.9 and hematocrit 39.6 with a platelet count 203,000. His electrocardiogram reveals atrial fibrillation with a left axis deviation and nonspecific ST-T abnormalities. Chest x-ray reveals borderline cardiac silhouette enlargement with clear lung bone. IMPRESSION: 1. Cough and dyspnea, appears consistent with bronchitis, no clear evidence of infiltrate on chest x-ray and no clear evidence of decompensated congestive heart failure at the present time. 2. Chronic atrial fibrillation with controlled rate. 3. Advanced dementia. 4. Rest of problems as noted. RECOMMENDATIONS: Current management should continue for now. An echocardiogram has been performed and will be reviewed. Cough medication and antibiotics have been initiated. In general, conservative management is most appropriate at this time. Thank you for this consultation. I would be happy to follow along through his hospital course. Merlin Karimi MD
--- NOTE | 2018-12-16 15:02 | CT ---
Date of service: 12/16/2018 PROCEDURE: CT Chest without contrast HISTORY: Cough COMPARISON: Plain radiograph from 12/14/2018. TECHNIQUE: Contiguous axial images were obtained through the chest without intravenous contrast enhancement. Sagittal and coronal reconstructions were performed. Radiation dose: Total exam DLP = 406.73 mGy-cm. This CT exam was performed using one or more of the following dose reduction techniques: Automated exposure control, adjustment of the mA and/or kV according to patient size, and/or use of iterative reconstruction technique. FINDINGS: LUNGS: There is pulmonary hyperinflation. There is diffuse centrilobular emphysema in the lungs and mild paraseptal emphysema in the upper lobes. There is bibasilar subsegmental atelectasis. There is a 8 mm subpleural nodule in the right middle lobe (series 3, image 61). There is mild biapical pleural parenchymal scarring. There is no mass or focal consolidation. There are no endobronchial lesions. MEDIASTINUM: Mild cardiomegaly. No pericardial effusion. The aorta is normal in caliber. No evidence for aortic aneurysm. Main pulmonary artery unremarkable. No vascular congestion. No lymphadenopathy. There are aortic atherosclerotic calcifications present. PLEURA: No pleural fluid. No pneumothorax. BONES: No fracture. No destructive lesion. There is diffuse bone demineralization and multilevel degenerative changes in the spine. UPPER ABDOMEN: There is a small sliding hiatal hernia. There is moderate dilatation of the upper thoracic esophagus and mild circumferential mural thickening in the distal esophagus. OTHER FINDINGS: None. IMPRESSION: 1. No acute findings in the chest. 2. Emphysema with upper lobe. Predominance 3. 8 mm subpleural nodule in the right middle lobe. Follow-up CT scan in 6-12 month interval is recommended to assess stability of this nodule.
[2018-12-17 07:03] LABS: BASO # 0.04 K/mm3 (0.0-2.0); BASO % 0.5 % (0.0-3.0); EOS # 0.3 (0.0-0.7); EOS % 3.6 % (1.5-5.0); HEMOGLOBIN 13.5 g/dL (14.0-18.0); LYMPH % 25.1 % (22.0-35.0); MEAN CELL VOLUME 95.2 fl (80.0-105.0); MEAN CORPUSCULAR HEMOGLOBIN 30.9 pg (25.0-35.0); MEAN CORPUSCULAR HGB CONC 32.5 g/dl (31.0-37.0); MEAN PLATELET VOLUME 11.6 fl (7.0-11.0); MONO # 0.8 (0.1-0.6); MONO % 10.3 % (1.0-6.0); RBC 4.37 10^6/uL (3.5-6.1); RED CELL DISTRIBUTION WIDTH 13.4 % (11.5-14.5); WHITE BLOOD COUNT 7.9 10^3/uL (4.5-11.0)
[2018-12-17 08:22] LABS: ALBUMIN 3.8 g/dL (3.0-4.8); ALT/SGPT 29 U/L (7-56); AST/SGOT 39 U/L (17-59); BLOOD UREA NITROGEN 33 mg/dL (7-21); CALCIUM 8.8 mg/dL (8.4-10.5); GFR NON-AFRICAN AMERICAN > 60
--- NOTE | 2018-12-17 09:23 | PN ---
DATE: 12/16/2018 I have reviewed the resident's note and I do agree with it. I did see the patient, evaluated the patient and examined the patient. I reviewed the patient's medications and labs. CHF. We will get Physical Therapy to evaluate the patient to see if he qualifies for possible TCU or subacute rehab. Kendrick Garcia MD
[2018-12-17] MEDS: Enoxaparin 40 mg Syringe SC SCH (09:28)
[2018-12-17] MEDS: cefTRIAXone 1 gm 1 GM/100 ML BAG IVPB SCH (09:32)
[2018-12-17] MEDS: MEMANTINE HCL 28 MG PO SCH (09:32)
[2018-12-17] MEDS: Aspirin 325 mg EC Tablets PO SCH (11:02)
--- NOTE | 2018-12-17 16:37 | CP.PCM.APN ---
Subjective - Date & Time of Evaluation Date of Evaluation: 12/17/18 Time of Evaluation: 10:45 - Subjective Subjective: pt. seen and examined in bed, at bedside, translated. cough noted, states breathing is better, PT at bedside, attempting to get patient OOB, noted to be weak and unable to sit up with 2 person assist. Denied chest pain, RR ea sy and unlabored. Objective - Vital Signs/Intake and Output Vital Signs (last 24 hours): Temp Pulse Resp BP Pulse Ox 97.8 F 70 20 127/78 95 12/17/18 08:21 12/17/18 08:21 12/17/18 08:21 12/17/18 09:28 12/17/18 08:21 Intake and Output: 12/17/18 12/17/18 06:59 18:59 Intake Total 838 240 Output Total 1125 800 Balance -287 -560 - Medications Medications: Current Medications Aspirin (Ecotrin) 325 mg PO DAILY [facility] Last Admin: 12/17/18 11:02 Dose: 325 mg Benzonatate (Tessalon Perles) 100 mg PO TID [facility] Last Admin: 12/17/18 13:58 Dose: 100 mg Cefpodoxime Proxetil (Vantin) 200 mg PO Q12 [facility] Stop: 12/20/18 10:01 Doxycycline Hyclate (Doryx) 100 mg PO Q12 [facility] Enoxaparin Sodium (Lovenox) 40 mg SC DAILY [facility]; Protocol Last Admin: 12/17/18 09:28 Dose: 40 mg Furosemide (Lasix) 40 mg IVP DAILY [facility] Last Admin: 12/17/18 09:28 Dose: 40 mg Memantine (Namenda) 10 mg PO DAILY [facility] Memantine Hcl [ Namenda Xr] 28 Mg (Home Med) 28 mg PO DAILY [facility] Last Admin: 12/17/18 09:32 Dose: 28 mg Sertraline HCl (Zoloft) 75 mg PO DAILY [facility] Last Admin: 12/17/18 09:34 Dose: 75 mg - Labs Labs: 12/17/18 06:00 12/17/18 06:00 PT 12.9 SECONDS (9.4-12.5) H 12/14/18 14:50 INR 1.16 12/14/18 14:50 APTT 36.1 Seconds (26.9-38.3) 12/14/18 14:50 - Constitutional Appears: Well, Non-toxic - Head Exam Head Exam: NORMOCEPHALIC - Eye Exam Eye Exam: Normal appearance - Neck Exam Neck Exam: Full ROM - Respiratory Exam Additional comments: crackles to right base - Cardiovascular Exam Cardiovascular Exam: Irregular Rhythm, +S1, +S2 - GI/Abdominal Exam GI & Abdominal Exam: Soft - Rectal Exam Rectal Exam: Deferred - Exam Exam: absent: Circumcision, NORMAL INSPECTION, Scrotal Swelling, Testicular Tenderness, Uretheral Discharge, Testicular Vertical Lie, Bladder Distension External exam: absent: Ecchymosis, Erythema, Lacerations, Lesions, NORMAL EXTERNAL EXAM, Swelling Speculum exam: absent: Cervical Discharge, Erythema, Foreign Body, Laceration, NORMAL SPECULUM EXAM, Tissue, Vaginal Bleeding, Vaginal Discharge Bimanual exam: absent: Adenexal Mass, Adnexal, Cervical Motion Tendernes, NORMAL BIMANUAL EXAM, Uterine Enlargement, Uterine Tenderness - Back Exam Back Exam: NORMAL INSPECTION - Psychiatric Exam Psychiatric exam: Normal Mood - Skin Skin Exam: Dry, Intact, Normal Color, Warm Assessment and Plan - Assessment and Plan (Free Text) Assessment: ITS Impressions Chest X-Ray 12/14/18 14:22 IMPRESSION: No active disease. Chest CT 12/16/18 09:24 IMPRESSION: 1. No acute findings in the chest. 2. Emphysema with upper lobe. Predominance 3. 8 mm subpleural nodule in the right middle lobe. Follow-up CT scan in 6-12 month interval is recommended to assess stability of this nodule. Assessment: 83-year-old male with past history of CHF, dementia, hyperlipidemia, colon cancer with colostomy, presents with cough, congestion, and weakness, admitted for Emphysema, poss CHF with cardiology consulted. Plan: 1. CHF not likely per cardiology 2. Bibasilar Atelectasis w. 8mm nodule on right middle upper lobe. 3. Leukocytosis, no source of infection id yet, however patient is with green sputum, productive cough monitor cbc, trend wbc. D/w consultants and PmD. PT rec JOSE, SW/CM for DC planning to [facility]
--- NOTE | 2018-12-17 19:12 | PN ---
DATE: 12/17/2018 SUBJECTIVE: The patient is seen lying in bed on 3R. He currently appears comfortable. He continues to have heavy cough which appears nonproductive. He is seen in the presence of his . CURRENT MEDICATIONS: Include doxycycline, aspirin, Lasix 40 mg daily, Lovenox, Namenda, Vantin and Zoloft. OBJECTIVE: GENERAL: He is an elderly man appears comfortable at rest. VITAL SIGNS: Blood pressure is 126/76, pulse of 70, respirations are 16, and he is afebrile. HEENT/NECK: No JVD. CHEST: Bilateral scattered rhonchi heard. HEART: PMI displaced laterally with an irregularly irregular rhythm. ABDOMEN: Soft and nontender. Normoactive bowel sounds. EXTREMITIES: No edema. DIAGNOSTIC DATA: Potassium is 4.0, BUN and creatinine 33 and 0.9. White count 7.9, hemoglobin 13.5, and hematocrit 41.6 with a platelet count of 223,000. IMPRESSION: 1. Bronchitis with no clear evidence of heart failure at the present time. 2. Chronic atrial fibrillation. 3. Advanced dementia. RECOMMENDATIONS: His current medications should be continued for now. Expectorants are being administered. Conservative cardiac management is advised. Anticoagulation remains on hold due to prior history of bleeding. We will be happy to follow along as needed. Merlin Karimi MD
--- NOTE | 2018-12-17 23:21 | PN ---
DATE: 12/17/2018 SUBJECTIVE: An 83-year-old white male with a history of colostomy for colon cancer, dementia, history of CVA in the past, history of COPD. The patient was brought in by his after a long course of coughing and change of mental status and confusion. The patient was admitted, CAT scan showed evidence of bronchitis without evidence of pneumonia. The patient has a poor cough reflex and does not follow commands thus far due to his dementia. He is without complaints today. He was seen at the bedside with his . PHYSICAL EXAMINATION: GENERAL: Shows a well-developed, well-nourished white male without any distress, not following commands, however awake and alert and cognizant of who I am. VITAL SIGNS: His temperature is 97.2, blood pressure 129/64, pulse is 89. CHEST: Shows decreased breath sounds at both bases. HEART: S1, S2. Regular sinus rhythm. ABDOMEN: Benign. EXTREMITIES: Without cyanosis, clubbing or edema. LABORATORY DATA: BUN and creatinine is slightly elevated at 33 and 0.9. His white count, which was 13,000, is down to 7.9. His hemoglobin is stable at 13.5. IMPRESSION: This is an 83-year-old white male with multiple medical problems including dementia, presenting with lower respiratory tract infection and possible early sepsis. Star Sosa MD
[2018-12-18 06:45] LABS: BASO # 0.04 K/mm3 (0.0-2.0); BASO % 0.5 % (0.0-3.0); EOS # 0.3 (0.0-0.7); EOS % 3.2 % (1.5-5.0); HEMOGLOBIN 13.4 g/dL (14.0-18.0); LYMPH # 2.6 (1.2-3.4); LYMPH % 30.2 % (22.0-35.0); MEAN CELL VOLUME 95.2 fl (80.0-105.0); MEAN CORPUSCULAR HEMOGLOBIN 30.8 pg (25.0-35.0); MEAN CORPUSCULAR HGB CONC 32.4 g/dl (31.0-37.0); MEAN PLATELET VOLUME 11.3 fl (7.0-11.0); MONO # 0.8 (0.1-0.6); MONO % 9.7 % (1.0-6.0); RBC 4.35 10^6/uL (3.5-6.1); RED CELL DISTRIBUTION WIDTH 13.3 % (11.5-14.5); WHITE BLOOD COUNT 8.5 10^3/uL (4.5-11.0)
[2018-12-18 06:58] LABS: ALBUMIN 3.8 g/dL (3.0-4.8); ALT/SGPT 30 U/L (7-56); AST/SGOT 36 U/L (17-59); BLOOD UREA NITROGEN 38 mg/dL (7-21); CALCIUM 9.8 mg/dL (8.4-10.5); GFR NON-AFRICAN AMERICAN > 60
--- NOTE | 2018-12-18 10:44 | PN ---
DATE: 12/18/2018 SUBJECTIVE: An 83-year-old white male with dementia, history of colon cancer, history of prostate cancer admitted with cough sputum production, change in mental status. The patient is not fully improved. He is afebrile. Vital signs are stable. White count is 8.5, [place] [id number] chest x-ray make sure there is no residual infiltrate and continue antibiotics, possible discharge to [facility] if chest x-ray is normal. Star Sosa MD
[2018-12-18] MEDS: MEMANTINE HCL 28 MG PO SCH (11:28)
[2018-12-18] MEDS: Enoxaparin 40 mg Syringe SC SCH (11:29)
[2018-12-18] MEDS: Cefpodoxime (Vantin) 200 mg Tab PO SCH ×2 (11:30→22:29)
--- NOTE | 2018-12-18 12:26 | RAD ---
Date of service: 12/18/2018 HISTORY: cough COMPARISON: 12/14/2018 TECHNIQUE: Chest PA and lateral FINDINGS: LUNGS: No active pulmonary disease. PLEURA: No significant pleural effusion identified. No pneumothorax apparent. CARDIOVASCULAR: No aortic atherosclerotic calcification present. Normal cardiac size. No pulmonary vascular congestion. OSSEOUS STRUCTURES: No significant abnormalities. VISUALIZED UPPER ABDOMEN: Normal. OTHER FINDINGS: None. IMPRESSION: No active disease. 12/14/2018
--- NOTE | 2018-12-18 13:31 | CP.PCM.PCO ---
Physician Communication Note - Physician Communication Note Physician Communication Note: MD notified of repeat cxr done this am,medically cleared for DC
[2018-12-18] MEDS: Aspirin 325 mg EC Tablets PO SCH (15:23)
[2018-12-18 16:50] VITALS: O2SAT 95
[2018-12-19 06:41] LABS: BASO # 0.04 K/mm3 (0.0-2.0); BASO % 0.5 % (0.0-3.0); EOS # 0.3 (0.0-0.7); EOS % 3.3 % (1.5-5.0); HEMOGLOBIN 13.7 g/dL (14.0-18.0); LYMPH % 24.7 % (22.0-35.0); MEAN CELL VOLUME 96.3 fl (80.0-105.0); MEAN CORPUSCULAR HEMOGLOBIN 31.9 pg (25.0-35.0); MEAN CORPUSCULAR HGB CONC 33.1 g/dl (31.0-37.0); MEAN PLATELET VOLUME 11.2 fl (7.0-11.0); MONO # 1.2 (0.1-0.6); MONO % 14.8 % (1.0-6.0); RBC 4.3 10^6/uL (3.5-6.1); RED CELL DISTRIBUTION WIDTH 13.4 % (11.5-14.5); WHITE BLOOD COUNT 8.2 10^3/uL (4.5-11.0)
[2018-12-19 07:21] LABS: ALBUMIN 3.9 g/dL (3.0-4.8); ALT/SGPT 36 U/L (7-56); AST/SGOT 49 U/L (17-59); BLOOD UREA NITROGEN 50 mg/dL (7-21); GFR NON-AFRICAN AMERICAN > 60
[2018-12-19 09:15] VITALS: BP 123/74; PULSE 76; RESP 17; TEMP 97.8
[2018-12-19] MEDS: Cefpodoxime (Vantin) 200 mg Tab PO SCH (10:20)
[2018-12-19] MEDS: Aspirin 325 mg EC Tablets PO SCH (10:20)
[2018-12-19] MEDS: MEMANTINE HCL 28 MG PO SCH (10:25)
--- NOTE | 2018-12-19 10:50 | PN ---
DATE: 12/19/2018 SUBJECTIVE: An 83-year-old white male admitted to the hospital for lower respiratory tract infection, resolved. He is afebrile. Vital signs are stable. He is doing some physical therapy, occupational therapy and most likely he will return. PLAN: Plan is to return the patient to outpatient physical therapy. The patient does have a slightly elevated BUN of 50 and creatinine 1.0; however, his blood pressure 114/59. His temperature is 98. We will hold the patient's furosemide because of possible hypovolemia and continue finish his p.o. antibiotics. I will also stop his Lovenox since the patient is more ambulatory at this point. Continue his medications for dementia. Finish his p.o. antibiotics and discharge when a bed is available. tSar Sosa MD
== END 2018-12-19 12:33 | DRG 202 ==
LOC: ED 13:57 → ERH 16:17 → 2RSO 20:08 → OBSVTOIN 12-15 20:45 → 3RSO 12-16 22:37
PROVIDERS: ADMIT Internal Medicine; ATTEND Internal Medicine
DX: J20.9 Acute bronchitis, unspecified (principal); J44.0 Chronic obstructive pulmonary disease with (acute) lower respiratory infection; R65.10 Systemic inflammatory response syndrome (SIRS) of non-infectious origin without acute organ dysfunction; I50.22 Chronic systolic (congestive) heart failure; Q60.0 Renal agenesis, unilateral; G30.9 Alzheimer's disease, unspecified; F02.80 Dementia in other diseases classified elsewhere, unspecified severity, without behavioral disturbance, psychotic disturbance, mood disturbance, and anxiety; I48.2 Chronic atrial fibrillation; M06.9 Rheumatoid arthritis, unspecified; N40.0 Benign prostatic hyperplasia without lower urinary tract symptoms; F32.9 Major depressive disorder, single episode, unspecified; E78.5 Hyperlipidemia, unspecified; Z85.038 Personal history of other malignant neoplasm of large intestine; Z93.3 Colostomy status; Z87.891 Personal history of nicotine dependence; Z79.82 Long term (current) use of aspirin; Z85.46 Personal history of malignant neoplasm of prostate; Z86.73 Personal history of transient ischemic attack (TIA), and cerebral infarction without residual deficits; Z87.01 Personal history of pneumonia (recurrent)

== ENCOUNTER 2019-03-08 10:48 | Inpatient (IN) | payer MEDICARE, OTHER ==
[2019-03-08 10:48] VITALS: PULSE 86
[2019-03-08] MEDS ORDERED: Morphine 4 mg/ml ISec IVP STA (11:12)
[2019-03-08] MEDS ORDERED: Sodium Chloride 0.9% 1,000 ML IV STA (11:12)
--- NOTE | 2019-03-08 11:18 | ED PDOC ---
Arrival/HPI - General Chief Complaint: Trauma Time Seen by Provider: 03/08/19 11:03 Historian: Patient - History of Present Illness Narrative History of Present Illness (Text): 03/08/19 11:03 Hellen Owusu is an 83 year old male, with a past medical history of dementia, afib, and frequent falls (per ), who presents to the emergency department complaining of left posterior rib pain s/p fall yesterday. Per , patient was found on the ground yesterday next to bed and was unable to explain reason for fall. Patient got up with assistance from friend and was ambulatory. Per , pt "did not want to do anything" yesterday. noted left posterior rib tenderness today. Further ROS limited by dementia. PMD: Dr. Sosa 03/08/19 12:01 Time/Duration: 24 hours Symptom Onset: Sudden Activities at Onset: Light Context: Home Past Medical History - Provider Review Nursing Documentation Reviewed: Yes Primary Care Provider: Star Sosa - Infectious Disease Hx of Infectious Diseases: None - Tetanus Immunization Tetanus Immunization: Unknown - Cardiac Hx Congestive Heart Failure: Yes - Pulmonary Hx Respiratory Disorders: Yes Hx Bronchitis: Yes Hx Chronic Obstructive Pulmonary Disease (COPD): Yes Hx Pneumonia: Yes - Neurological Hx Neurological Disorder: Yes Hx Alzheimer's Disease: Yes Hx Dementia: Yes - HEENT Hx HEENT Disorder: No - Renal Hx Renal Disorder: Yes Other/Comment: 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, 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 "ball of water" as stated by family that was in place of right kidney - Endocrine/Metabolic Hx Endocrine Disorders: No - Hematological/Oncological Hx Blood Disorders: Yes Hx Cancer: Yes (colon ca dx 1984) Other/Comment: colon resection with colostomy 1984 followed by light therapy chemo injections - Integumentary Hx Dermatological Disorder: Yes Other/Comment: red buttocks no openings - Musculoskeletal/Rheumatological Hx Musculoskeletal Disorders: Yes (rheumatoid arthritis) Hx Falls: Yes (past) Hx Unsteady Gait: Yes (human assistance) - Gastrointestinal Hx Gastrointestinal Disorders: Yes Hx Colostomy: Yes (since 1984) - Genitourinary/Gynecological Hx Genitourinary Disorders: Yes Hx Incontinence: Yes (urine) Hx Prostate Problems: Yes (bph) - Psychiatric Hx Psychophysiologic Disorder: No Hx Substance Use: No - Surgical History Other/Comment: colostomy,hernia repair - Anesthesia Hx Anesthesia: Yes Hx Anesthesia Reactions: No Hx Malignant Hyperthermia: No - Suicidal Assessment Feels Threatened In Home Enviroment: No Family/Social History - Physician Review Nursing Documentation Reviewed: Yes Family/Social History: Unknown Family HX Smoking Status: Former Smoker Hx Alcohol Use: No Hx Substance Use: No Allergies/Home Meds Allergies/Adverse Reactions: Allergies No Known Allergies Allergy (Verified 09/01/14 16:44) Home Medications: Home Meds Medication Instructions Recorded Confirmed Rivastigmine 9.5 mg/24 hr [Exelon 9.5 mg TD DAILY 09/01/14 03/08/19 9.5 mg/24 hr Patch] Aspirin [Ecotrin] 325 mg PO DAILY 01/08/18 03/08/19 D3 1000 1,000 iu PO DAILY 01/08/18 03/08/19 Folic Acid 1 mg PO DAILY 01/08/18 03/08/19 Memantine HCl [Namenda Xr] 28 mg PO DAILY 01/08/18 03/08/19 [place]-3 Fatty Acids/Fish Oil [Fish 1,000 mg PO DAILY 01/08/18 03/08/19 Oil 1,000 mg Softgel] Sertraline [Zoloft] 75 mg PO DAILY 01/08/18 03/08/19 Simvastatin [Zocor] 20 mg PO DAILY 01/08/18 03/08/19 Vanda C 1,000 mg PO DAILY 01/08/18 03/08/19 l-Mefol/A-Cyst/Meb12/Algal Oil 1 tab PO DAILY 01/08/18 03/08/19 [Cerefolin Nac Caplet] Review of Systems - Review of Systems Systems not reviewed;Unavailable: Dementia Physical Exam - Physical Exam Physical Exam Limitations: Other (dementia) - Systems Exam Head: Present: Atraumatic, Normocephalic Pupils: Present: PERRL Extroacular Muscles: Present: EOMI Conjunctiva: Present: Normal Mouth: Present: Moist Mucous Membranes Neck: No: MIDLINE TENDERNESS Respiratory/Chest: Present: Clear to Auscultation, Good Air Exchange, Other (posterior left sided rib tenderness and crepitus). No: Respiratory Distress, Accessory Muscle Use Cardiovascular: Present: Normal S1, S2, Irregular Rhythm. No: Murmurs Abdomen: Present: Normal Bowel Sounds, Ostomy Tubes. No: Tenderness, Distention, Peritoneal Signs, Rebound, Guarding Upper Extremity: No: Cyanosis, Edema, Tenderness Lower Extremity: Present: Normal ROM (no pain at hips with active ROM). No: Edema, Tenderness Neurological: Present: Motor Func Grossly Intact, Other (unable to follow commands for further neurological exam) Skin: Present: Warm, Dry, Normal Color. No: Rashes Psychiatric: Present: Alert Medical Decision Making ED Course and Treatment: 03/08/19 11:03 Impression: Patient is an 83 year old male, with a past medical history of dementia and frequent falls, who reports to the emergency department complaining of left posterior rib pain s/p fall yesterday. Plan: -- Labs -- CT C-Spine -- CT Chest, Abd, Pelvis w/ IV contrast -- CT Head w/o contrast -- EKG -- Chest X-Ray -- Morphine -- IV Fluids -- Urinalysis -- Reassess and disposition Prior Visits: Notes and results from previous visits were reviewed. Patient was last seen in the emergency department on Progress Notes: 03/08/19 12:38 EKG shows afib at 91bpm (hx of) 03/08/19 13:24 Cxray Findings: PLEURA: There is a moderate size left pneumothorax. The edge of the lung is 2 cm from the chest wall. There is subcutaneous emphysema. Findings were discussed with Dr. Dorman at 1:20 p.m. CARDIOVASCULAR: Aortic calcification Mild cardiomegaly no pulmonary vascular congestion. OSSEOUS STRUCTURES: No significant abnormalities. VISUALIZED UPPER ABDOMEN: Normal. OTHER FINDINGS: None. IMPRESSION: Left-sided pneumothorax 03/08/19 13:31 CT head: Generalized atrophy. Nonspecific white matter changes. CT c-spine: 1. No acute fracture or traumatic anterior listhesis. 2. Moderate left apical pneumothorax and large soft tissue emphysema in the left lateral soft tissues of the neck. CT chest/abd/pelvis IMPRESSION: Approximately 40% posttraumatic left hemopneumothorax. Contiguous displaced posterior lateral 5th and 6th rib fractures. Massive subcutaneous emphysema extending from the neck through the chest abdomen and upper pelvic region. 03/08/19 15:04 Dr. Vargas admitting for Dr. Sosa. ICU evaluated and reports can go to med/sx. surgical resident placed chest tube under consultation with Dr. Tidwell. - RAD Interpretation Radiology Orders: 03/08/19 11:10 CERVICAL SPINE W/O CONTRAST [CT] Stat CHEST,ABD,PEL W/IV CONT ONLY [CT] Stat HEAD W/O CONTRAST [CT] Stat CHEST PORTABLE [RAD] Stat - Medication Orders Current Medication Orders: Sodium Chloride (Sodium Chloride 0.9%) 1,000 mls @ 999 mls/hr IV .Q1H1M STA Stop: 03/08/19 12:12 Discontinued Medications Morphine Sulfate (Morphine) 4 mg IVP STAT STA Stop: 03/08/19 11:13 - Scribe Statement The provider has reviewed the documentation as recorded by the Scribe Darrick Ryan All medical record entries made by the Scribe were at my direction and personally dictated by me. I have reviewed the chart and agree that the record accurately reflects my personal performance of the history, physical exam, medical decision making, and the department course for this patient. I have also personally directed, reviewed, and agree with the discharge instructions and disposition. Disposition/Present on Arrival - Present on Arrival Any Indicators Present on Arrival: No History of DVT/PE: No History of Uncontrolled Diabetes: No Urinary Catheter: No History of Decub. Ulcer: No History Surgical Site Infection Following: None - Disposition Have Diagnosis and Disposition been Completed?: Yes Diagnosis: Rib fracture, Hemopneumothorax on left Disposition: HOSPITALIZED Disposition Time: 15:05 Patient Plan: Admission Patient Problems: Current Active Problems Problem Status Onset Hemopneumothorax on left Acute Rib fracture Acute Condition: FAIR Referrals: Star Sosa MD [Primary Care Provider] - Follow up with primary Forms: [employer] (Sinhala)
[2019-03-08 11:50] LABS: BASO # 0.01 K/mm3 (0.0-2.0); BASO % 0.1 % (0.0-3.0); EOS % 0.3 % (1.5-5.0); HEMOGLOBIN 14.3 g/dL (14.0-18.0); LYMPH # 1.4 (1.2-3.4); LYMPH % 12.2 % (22.0-35.0); MEAN CORPUSCULAR HEMOGLOBIN 31.3 pg (25.0-35.0); MEAN CORPUSCULAR HGB CONC 32.9 g/dl (31.0-37.0); MEAN PLATELET VOLUME 10.6 fl (7.0-11.0); MONO # 1.2 (0.1-0.6); MONO % 10.4 % (1.0-6.0); RBC 4.57 10^6/uL (3.5-6.1); RED CELL DISTRIBUTION WIDTH 13.9 % (11.5-14.5); WHITE BLOOD COUNT 11.7 10^3/uL (4.5-11.0)
[2019-03-08 11:59] LABS: INR 1.13; PARTIAL THROMBOPLASTIN TIME 35.5 Seconds (26.9-38.3); PROTHROMBIN TIME 12.8 SECONDS (9.4-12.5)
[2019-03-08 12:01] LABS: ALT/SGPT 30 U/L (7-56); AST/SGOT 28 U/L (17-59); BLOOD UREA NITROGEN 22 mg/dL (7-21); CALCIUM 9.6 mg/dL (8.4-10.5); GFR NON-AFRICAN AMERICAN > 60
[2019-03-08 12:12] LABS: TROPONIN I < 0.01 ng/mL
--- NOTE | 2019-03-08 13:08 | CT ---
Date of service: 03/08/2019 PROCEDURE: CT HEAD WITHOUT CONTRAST. HISTORY: head trauma, dementia COMPARISON: Noncontrast head CT performed 01/08/18 TECHNIQUE: Axial computed tomography images were obtained through the head/brain without intravenous contrast. Radiation dose: Total exam DLP = 1031.83 mGy-cm. This CT exam was performed using one or more of the following dose reduction techniques: Automated exposure control, adjustment of the mA and/or kV according to patient size, and/or use of iterative reconstruction technique. FINDINGS: Streak artifact significantly obscures evaluation of the skull base. HEMORRHAGE: No intracranial hemorrhage. BRAIN: Diffuse atrophy with prominence of the ventricles and sulci noted. No mass effect or edema. Intracranial atherosclerosis. Scattered periventricular and subcortical white matter hypodensities, which are nonspecific, but often seen with chronic microvascular ischemic disease. Please note that MRI with diffusion imaging is more sensitive in the detection of acute ischemic event. VENTRICLES: No hydrocephalus. CALVARIUM: Unremarkable. PARANASAL SINUSES: Unremarkable as visualized. No significant inflammatory changes. MASTOID AIR CELLS: Unremarkable as visualized. No inflammatory changes. OTHER FINDINGS: Partial opacification of the external auditory canals, likely cerumen. IMPRESSION: Generalized atrophy. Nonspecific white matter changes.
--- NOTE | 2019-03-08 13:28 | CT ---
Date of service: 03/08/2019 PROCEDURE: CT Cervical Spine without contrast HISTORY: head trauma, dementia COMPARISON: None available. TECHNIQUE: Axial computed tomography images were obtained of the cervical spine without the use of intravenous contrast. Coronal and sagittal reformatted images were created and reviewed. Radiation dose: Total exam DLP = 502.29 mGy-cm. This CT exam was performed using one or more of the following dose reduction techniques: Automated exposure control, adjustment of the mA and/or kV according to patient size, and/or use of iterative reconstruction technique. FINDINGS: VERTEBRAE: There is 2 mm degenerative retrolisthesis of C3 on C4 and C5-6 . There straightening of the cervical spine with loss of normal cervical lordosis. There is diffuse bone demineralization. There is no acute fracture or traumatic anterior listhesis. The craniocervical junction is normal. The atlantoaxial joint is normal. DISCS/SPINAL CANAL/NEURAL FORAMINA: There is multilevel degenerative disc disease due to combination of disc osteophyte complexes, uncovertebral joint hypertrophy and multilevel facet arthropathy worse at C5-6 with mild neural foraminal narrowing without central spinal canal stenosis. PARASPINAL SOFT TISSUES: There is large amount of soft tissue emphysema in the left lateral soft tissues of the neck OTHER FINDINGS: Moderate left apical pneumothorax. IMPRESSION: 1. No acute fracture or traumatic anterior listhesis. 2. Moderate left apical pneumothorax and large soft tissue emphysema in the left lateral soft tissues of the neck.
--- NOTE | 2019-03-08 13:40 | CT ---
Date of service: 03/08/2019 PROCEDURE: CT Chest, Abdomen and Pelvis with intravenous contrast HISTORY: Dementia, left L sided rib tenderness, hip pain COMPARISON: 10/20/2014. CT abdomen and pelvis. 12/16/2018 CT thorax. TECHNIQUE: IV dose administered: 147 cc Omnipaque 350. Radiation dose: Total exam DLP = 730.99 mGy-cm. This CT exam was performed using one or more of the following dose reduction techniques: Automated exposure control, adjustment of the mA and/or kV according to patient size, and/or use of iterative reconstruction technique. FINDINGS: CT CHEST WITH CONTRAST: LUNGS: Partial collapse of the left lung associate with approximately 40% pneumothorax. No appreciable midline shift or evidence of tension pneumothorax. Considerable adjacent subcutaneous emphysematous change noted. MEDIASTINUM: Normal caliber aorta and pulmonary arterial trunk. Atherosclerotic calcification and mural plaque present. Findings are seen throughout the aorta. LYMPH NODES: Unremarkable. PLEURA: 40% left hydropneumothorax. Mean Hounsfield units of the pleural fluid 73 consistent with hemorrhage in the pleural space. BONES: Displaced posterior lateral left 5th and 6 rib fractures resulting in approximately 40% left pneumothorax and adjacent subcutaneous air. The finding is marked on the study for review.. Please refer to axial series 4/images 44-64. OTHER FINDINGS: None. CT ABDOMEN AND PELVIS: LIVER: Unremarkable. No gross lesion or ductal dilatation. GALLBLADDER AND BILE DUCTS: Unremarkable. PANCREAS: Unremarkable. No gross lesion or ductal dilatation. SPLEEN: Unremarkable. ADRENALS: Unremarkable. No mass. KIDNEYS AND URETERS: Right kidney: Unremarkable. No hydronephrosis. No solid mass. Incidental finding(s): Simple cyst midpole region 2 cm. Left kidney: Surgically absent. VASCULATURE: Atherosclerotic calcification and mural plaque present. Findings are seen throughout the aorta which is non aneurysmal. BOWEL: Left lower quadrant diverting colostomy. Postoperative changes related to rectosigmoid resection. Constipation without fecal impaction or obstruction. A APPENDIX: Normal appendix. PERITONEUM: Unremarkable. No free fluid. No free air. LYMPH NODES: Unremarkable. No enlarged lymph nodes. BLADDER: Unremarkable. REPRODUCTIVE: Markedly lead enlarged prostate 6.4 x 7.3 cm. BONES: No acute fracture. OTHER FINDINGS: Subcutaneous emphysema at previously described extends into the left posterior lateral subcutaneous tissues to the level of the L5 vertebral body. IMPRESSION: Approximately 40% posttraumatic left hemopneumothorax. Contiguous displaced posterior lateral 5th and 6th rib fractures. Massive subcutaneous emphysema extending from the neck through the chest abdomen and upper pelvic region.
--- NOTE | 2019-03-08 13:48 | RAD ---
Date of service: 03/08/2019 HISTORY: Trauma COMPARISON: No prior. TECHNIQUE: 1 view obtained. FINDINGS: LUNGS: No active pulmonary disease. PLEURA: There is a moderate size left pneumothorax. The edge of the lung is 2 cm from the chest wall. There is subcutaneous emphysema. Findings were discussed with Dr. Dorman at 1:20 p.m. CARDIOVASCULAR: Aortic calcification Mild cardiomegaly no pulmonary vascular congestion. OSSEOUS STRUCTURES: No significant abnormalities. VISUALIZED UPPER ABDOMEN: Normal. OTHER FINDINGS: None. IMPRESSION: Left-sided pneumothorax
--- NOTE | 2019-03-08 16:21 | CP.PCM.CON ---
<Mello Quevedo - Last Filed: 03/08/19 16:50> History of Present Illness - History of Present Illness History of Present Illness: General Surgery Consult Re: L hemopneumothorax HPI: Pt demented and not answering questions, history taken from and EMR. 83M presented to the emergency department with left posterior rib pain s/p unwitnessed fall yesterday. Per , patient was found on the ground yesterday next to bed and was unable to explain reason for fall. Pt got up with assistance from friend. Per , pt did not want to do anything yesterday. noted left posterior rib tenderness today and decided to bring him in. Unable to obtain ROS due to dementia. PMH: CHF, Afib, dementia, Hx falls, hyperlipidemia, colon cancer with colostomy, BPH, COPD, Hx of congenital unilateral L kidney, Rheumatoid arthritis. PSH: Hemicolectomy with colostomy, inguinal hernia repair, pilonidal cyst FH: Noncontributory SH: Former smoker of 40 years, quit 18 years ago. No alcohol or drug use Meds: See MAR: On ASA, no other antiplatelet/anticoagulant. All: NKDA Review of Systems - Review of Systems Systems not reviewed;Unavailable: Dementia Past Patient History - Infectious Disease Hx of Infectious Diseases: None - Tetanus Immunizations Tetanus Immunization: Unknown - Past Social History Smoking Status: Former Smoker - CARDIAC Hx Congestive Heart Failure: Yes - PULMONARY Hx Respiratory Disorders: Yes Hx Bronchitis: Yes Hx Chronic Obstructive Pulmonary Disease (COPD): Yes Hx Pneumonia: Yes - NEUROLOGICAL Hx Neurological Disorder: Yes Hx Alzheimer's Disease: Yes Hx Dementia: Yes - HEENT Hx HEENT Problems: No - RENAL Hx Chronic Kidney Disease: Yes Other/Comment: 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, 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 "ball of water" as stated by family that was in place of right kidney - ENDOCRINE/METABOLIC Hx Endocrine Disorders: No - HEMATOLOGICAL/ONCOLOGICAL Hx Blood Disorders: Yes Hx Cancer: Yes (colon ca dx 1984) Other/Comment: colon resection with colostomy 1984 followed by light therapy chemo injections - INTEGUMENTARY Hx Dermatological Problems: Yes Other/Comment: red buttocks no openings - MUSCULOSKELETAL/RHEUMATOLOGICAL Hx Musculoskeletal Disorders: Yes (rheumatoid arthritis) Hx Falls: Yes (past) Hx Unsteady Gait: Yes (human assistance) - GASTROINTESTINAL Hx Gastrointestinal Disorders: Yes Hx Colostomy: Yes (since 1984) - GENITOURINARY/GYNECOLOGICAL Hx Genitourinary Disorders: Yes Hx Incontinence: Yes (urine) Hx Prostate Problems: Yes (bph) - PSYCHIATRIC Hx Psychophysiologic Disorder: No Hx Substance Use: No - SURGICAL HISTORY Other/Comment: colostomy,hernia repair - ANESTHESIA Hx Anesthesia: Yes Hx Anesthesia Reactions: No Hx Malignant Hyperthermia: No Meds Allergies/Adverse Reactions: Allergies Allergy/AdvReac Type Severity Reaction Status Date / Time No Known Allergies Allergy Verified 09/01/14 16:44 Physical Exam - Constitutional Appears: Non-toxic, No Acute Distress, Cachectic - Head Exam Head Exam: NORMOCEPHALIC. absent: ATRAUMATIC (Small bump on L posterior scalp) - Eye Exam Eye Exam: EOMI. absent: Scleral icterus - ENT Exam ENT Exam: Mucous Membranes Dry Additional comments: small subcutaneous air in supraclavicular region trachea midline. - Neck Exam Neck exam: Negative for: Lymphadenopathy, Thyromegaly - Respiratory Exam Respiratory Exam: Chest Wall Tenderness (L posterior 5th and 6th rib), NORMAL BREATHING PATTERN. absent: Respiratory Distress - Cardiovascular Exam Cardiovascular Exam: Irregular Rhythm. absent: Bradycardia, Tachycardia - GI/Abdominal Exam GI & Abdominal Exam: Soft. absent: Distended, Tenderness Additional comments: ostomy in place, midline abdominal scar, well healed - Rectal Exam Rectal Exam: Deferred - Extremities Exam Extremities exam: Negative for: calf tenderness, pedal edema - Back Exam Back exam: absent: CVA tenderness (L), CVA tenderness (R) Additional comments: Subcutaneous emphysema from L shoulder to L hip Small ecchymosis over Left 5th & 6th rib - Neurological Exam Neurological exam: Altered - Skin Skin Exam: Dry, Warm Results - Vital Signs Recent Vital Signs: Last Vital Signs Temp Pulse 90 03/08/19 14:54 Resp 18 03/08/19 14:54 BP 133/64 03/08/19 14:54 Pulse Ox 100 03/08/19 14:54 - Labs Result Diagrams: 03/08/19 11:35 03/08/19 11:35 Labs: Laboratory Results - last 24 hr 03/08/19 03/08/19 03/08/19 11:35 11:35 11:35 WBC 11.7 H D RBC 4.57 Hgb 14.3 Hct 43.4 MCV 95.0 MCH 31.3 MCHC 32.9 RDW 13.9 Plt Count 231 MPV 10.6 Neut % (Auto) 77.0 H Lymph % (Auto) 12.2 L Stephen[place] % (Auto) 10.4 H Eos % (Auto) 0.3 L Baso % (Auto) 0.1 Lymph # (Auto) 1.4 Stephenson # (Auto) 1.2 H Eos # (Auto) 0.0 Baso # (Auto) 0.01 Absolute Neuts (auto) 9.00 H PT 12.8 H INR 1.13 APTT 35.5 Sodium 143 Potassium 4.2 Chloride 102 Carbon Dioxide 32 Anion Gap 14 BUN 22 H Creatinine 0.9 Est GFR ( Amer) > 60 Est GFR (Non-Af Amer) > 60 Random Glucose 133 H Calcium 9.6 Total Bilirubin 0.8 AST 28 ALT 30 Alkaline Phosphatase 84 Troponin I < 0.01 Total Protein 7.9 Albumin 4.0 Globulin 3.9 Albumin/Globulin Ratio 1.0 L Blood Type Antibody Screen BBK History Checked 03/08/19 13:00 WBC RBC Hgb Hct MCV MCH MCHC RDW Plt Count MPV Neut % (Auto) Lymph % (Auto) Stephenson % (Auto) Eos % (Auto) Baso % (Auto) Lymph # (Auto) Stephenson # (Auto) Eos # (Auto) Baso # (Auto) Absolute Neuts (auto) PT INR APTT Sodium Potassium Chloride Carbon Dioxide Anion Gap BUN Creatinine Est GFR ( Amer) Est GFR (Non-Af Amer) Random Glucose Calcium Total Bilirubin AST ALT Alkaline Phosphatase Troponin I Total Protein Albumin Globulin Albumin/Globulin Ratio Blood Type O POSITIVE Antibody Screen Negative BBK History Checked Patient has bt - Imaging and Cardiology CT scan - head Status: Image reviewed by me, Report reviewed by me CT scan - chest Status: Image reviewed by me, Report reviewed by me CT scan - abdomen Status: Image reviewed by me, Report reviewed by me Chest x-ray Status: Image reviewed by me, Report reviewed by me Assessment & Plan - Assessment and Plan (Free Text) Assessment: 83M with left hemopneumothorax Plan: L chest tube placed, on wall suction. Monitor O2 Sat. Monitor output, monitor for air leak. Pain control as needed. Soft restraints to prevent pulling on tube, pt demented and has tremors. Needs close monitoring. D/W Dr. Bobby Quevedo PGY4 <Bimal Rosales - Last Filed: 03/09/19 07:35> History of Present Illness - History of Present Illness History of Present Illness: Patient was seen, evaluated and examined by me at the bedside. I agree with assessment and plan as stated in the resident's note. Meds - Medications Medications: Current Medications Acetaminophen (Tylenol 325mg Tab) 650 mg PO Q6H PRN PRN Reason: Pain, moderate (4-7) Aspirin (Ecotrin) 325 mg PO DAILY JAIME Atorvastatin Calcium (Lipitor) 10 mg PO DIN JAIME Folic Acid (Folic Acid) 1 mg PO DAILY JAIME Non-Formulary Medication (Memantine Hcl [Namenda Xr]) 28 mg PO DAILY JAIME Wgynu-[id number]-Yann Ethyl Esters (Lovaza) 1 gm PO DAILY JAIME Rivastigmine (Exelon 9.5 Mg/24 Hr Patch) 1 patch TD DAILY JAIME Sertraline HCl (Zoloft) 75 mg PO DAILY JAIME Results - Vital Signs Recent Vital Signs: Last Vital Signs Temp Pulse 88 03/08/19 22:00 Resp 20 03/08/19 22:00 BP 140/97 H 03/08/19 22:00 Pulse Ox 95 03/08/19 22:00 - Labs Result Diagrams: 03/08/19 11:35 03/08/19 11:35 Labs: Laboratory Results - last 24 hr 03/08/19 03/08/19 03/08/19 11:35 11:35 11:35 WBC 11.7 H D RBC 4.57 Hgb 14.3 Hct 43.4 MCV 95.0 MCH 31.3 MCHC 32.9 RDW 13.9 Plt Count 231 MPV 10.6 Neut % (Auto) 77.0 H Lymph % (Auto) 12.2 L Stephen[place] % (Auto) 10.4 H Eos % (Auto) 0.3 L Baso % (Auto) 0.1 Lymph # (Auto) 1.4 [place] # (Auto) 1.2 H Eos # (Auto) 0.0 Baso # (Auto) 0.01 Absolute Neuts (auto) 9.00 H PT 12.8 H INR 1.13 APTT 35.5 Sodium 143 Potassium 4.2 Chloride 102 Carbon Dioxide 32 Anion Gap 14 BUN 22 H Creatinine 0.9 Est GFR ( Amer) > 60 Est GFR (Non-Af Amer) > 60 Random Glucose 133 H Calcium 9.6 Total Bilirubin 0.8 AST 28 ALT 30 Alkaline Phosphatase 84 Troponin I < 0.01 Total Protein 7.9 Albumin 4.0 Globulin 3.9 Albumin/Globulin Ratio 1.0 L Blood Type Antibody Screen BBK History Checked 03/08/19 13:00 WBC RBC Hgb Hct MCV MCH MCHC RDW Plt Count MPV Neut % (Auto) Lymph % (Auto) Stephenson % (Auto) Eos % (Auto) Baso % (Auto) Lymph # (Auto) Stephenson # (Auto) Eos # (Auto) Baso # (Auto) Absolute Neuts (auto) PT INR APTT Sodium Potassium Chloride Carbon Dioxide Anion Gap BUN Creatinine Est GFR ( Amer) Est GFR (Non-Af Amer) Random Glucose Calcium Total Bilirubin AST ALT Alkaline Phosphatase Troponin I Total Protein Albumin Globulin Albumin/Globulin Ratio Blood Type O POSITIVE Antibody Screen Negative BBK History Checked Patient has bt
--- NOTE | 2019-03-08 17:35 | PCM.PROC ---
Procedures Attestation:: I certify that I have explained the specified Operation(s) or Procedure(s), risks, benefits and reasonable alternatives to the Patient and/or other person responsible. The opportunity was given to ask questions and all questions answered - Chest Tube Chest Tube Location: Mid-Axillary Left (Anterior midaxillary line, just below nipple level) Size of Tube (cm): 28 Chest Tube Procedure: Chlorhexidine Tube Sutured to Skin: Yes Sterile Dressing Applied: Yes Anesthesia: Lidocaine 1% Volume Anesthetic (mls): 11 Incision Made With: #11 blade Post Procedure: sutured to skin, sterile dressing applied [place] of Air [place]: Yes Tube Drainage: blood, other (air) Amount of Initial Drainage: 10 Post Procedure CXR?: Yes Patient Tolerated Procedure: Yes Complications: other (none)
--- NOTE | 2019-03-08 18:13 | RAD ---
Date of service: 03/08/2019 HISTORY: s/p chest tube insertion COMPARISON: March 08, 2019 study performed 13:12. FINDINGS: LUNGS: Improved aeration of the left lung. PLEURA: Partial re-expansion of the left lung following chest tube placement. CARDIOVASCULAR: No atherosclerotic calcification present Normal. OSSEOUS STRUCTURES: No significant abnormalities. VISUALIZED UPPER ABDOMEN: Normal. OTHER FINDINGS: Extensive subcutaneous emphysema. IMPRESSION: Status post placement of chest tube in the left pleural space. The lung is only partially re-expanded. Known rib fractures are not appreciated on the present study.
--- NOTE | 2019-03-08 19:38 | CARD ---
APPROVED REPORT Date of service: 03/08/2019 EKG Measurement Heart [id number] <Conclusion> Atrial fibrillation Low voltage QRS NDSTT abnormalities Abnormal ECG
[2019-03-08 21:35] VITALS: BMI 22.0
[2019-03-08] MEDS ORDERED: Pneumococcal 23-Valent Vaccine IM ONE (21:36)
--- NOTE | 2019-03-09 07:22 | CP.PCM.PN ---
<BurgessMello - Last Filed: 03/09/19 07:19> Subjective - Date & Time of Evaluation Date of Evaluation: 03/09/19 Time of Evaluation: 06:30 - Subjective Subjective: General Surgery Pt seen and examined. Did not answer questions this AM. Did not follow commands. Objective - Vital Signs/Intake and Output Vital Signs (last 24 hours): Temp Pulse Resp BP Pulse Ox 88 20 140/97 H 95 03/08/19 22:00 03/08/19 22:00 03/08/19 22:00 03/08/19 22:00 - Medications Medications: Current Medications Aspirin (Ecotrin) 325 mg PO DAILY [facility] Atorvastatin Calcium (Lipitor) 10 mg PO DIN [facility] Folic Acid (Folic Acid) 1 mg PO DAILY [facility] Non-Formulary Medication (Memantine Hcl [Namenda Xr]) 28 mg PO DAILY [facility] Lbqug-0-Omws Ethyl Esters (Lovaza) 1 gm PO DAILY [facility] Rivastigmine (Exelon 9.5 Mg/24 Hr Patch) 1 patch TD DAILY [facility] Sertraline HCl (Zoloft) 75 mg PO DAILY [facility] - Labs Labs: 03/08/19 11:35 03/08/19 11:35 PT 12.8 SECONDS (9.4-12.5) H 03/08/19 11:35 INR 1.13 03/08/19 11:35 APTT 35.5 Seconds (26.9-38.3) 03/08/19 11:35 - Constitutional Appears: No Acute Distress, Cachectic - Head Exam Head Exam: ATRAUMATIC, NORMOCEPHALIC - Eye Exam Eye Exam: EOMI. absent: Scleral icterus - Respiratory Exam Respiratory Exam: Chest Wall Tenderness (on L side posteriorly). absent: Accessory Muscle Use, Respiratory Distress Additional comments: chest tube in place on L side, dressing dry and intact. 60ml of serosanguinous output overnight. - Cardiovascular Exam Cardiovascular Exam: Irregular Rhythm - GI/Abdominal Exam GI & Abdominal Exam: Soft. absent: Distended, Tenderness Additional comments: ostomy in place, midline abdominal scar, well healed - Back Exam Additional comments: Decreasing subcutaneous emphysema from L shoulder to L hip Small ecchymosis over Left 5th & 6th rib - Neurological Exam Neurological Exam: Altered (dementia) - Skin Skin Exam: Dry, Warm Assessment and Plan - Assessment and Plan (Free Text) Assessment: 83M with left hemopneumothorax s/p chest tube placement Plan: Follow up Pulmonary Recommendations L chest tube placed, on wall suction. Monitor output, monitor for air leak. Tylenol for pain control as needed. Mittens to prevent pulling on tube, pt demented and has tremors. D/W Dr. Bobby Quevedo PGY4 <Bimal Rosales - Last Filed: 03/10/19 08:58> Objective - Vital Signs/Intake and Output Vital Signs (last 24 hours): Temp Pulse Resp BP Pulse Ox 98.1 F 92 H 20 115/66 95 03/09/19 22:26 03/09/19 22:26 03/09/19 22:26 03/09/19 22:26 03/09/19 14:00 Intake and Output: 03/10/19 03/10/19 06:59 18:59 Intake Total 60 Balance 60 - Medications Medications: Current Medications Acetaminophen (Tylenol 325mg Tab) 650 mg PO Q6H PRN PRN Reason: Pain, moderate (4-7) Aspirin (Ecotrin) 325 mg PO DAILY [facility] Last Admin: 03/09/19 15:06 Dose: 325 mg Atorvastatin Calcium (Lipitor) 10 mg PO DIN [facility] Last Admin: 03/09/19 18:07 Dose: 10 mg Enoxaparin Sodium (Lovenox) 40 mg SC DAILY [facility]; Protocol Folic Acid (Folic Acid) 1 mg PO DAILY [facility] Last Admin: 03/09/19 15:07 Dose: 1 mg Ipratropium [place] (Atrovent) 0.5 mg IH [id number] PRN PRN Reason: Shortness of Breath Levalbuterol HCl (Xopenex) 0.63 mg IH [id number] PRN PRN Reason: Shortness of Breath Memantine Hcl [ Namenda Xr] 28 Mg ( Home Med) 28 mg PO DAILY [facility] Last Admin: 03/09/19 16:48 Dose: Not Given Tikgj-0-Emju Ethyl Esters (Lovaza) 1 gm PO DAILY [facility] Last Admin: 03/09/19 15:07 Dose: 1 gm Pantoprazole Sodium (Protonix Ec Tab) 40 mg PO HS [facility] Last Admin: 03/09/19 22:20 Dose: Not Given Rivastigmine (Exelon 9.5 Mg/24 Hr Patch) 1 patch TD DAILY [facility] Last Admin: 03/09/19 09:55 Dose: 1 patch Sertraline HCl (Zoloft) 75 mg PO DAILY [facility] Last Admin: 03/09/19 15:07 Dose: 75 mg - Labs Labs: 03/08/19 11:35 03/08/19 11:35 PT 12.8 SECONDS (9.4-12.5) H 03/08/19 11:35 INR 1.13 03/08/19 11:35 APTT 35.5 Seconds (26.9-38.3) 03/08/19 11:35 Assessment and Plan - Assessment and Plan (Free Text) Plan: Patient was seen, evaluated and examined by me at the bedside. I agree with assessment and plan as stated in the resident's note.
[2019-03-09] MEDS: Aspirin 325 mg EC Tablets PO SCH ×2 (09:13→15:06)
[2019-03-09] MEDS: Omega-3-Acid Ethyl Esters 1 GM Cap PO SCH ×2 (09:14→15:07)
[2019-03-09] MEDS ORDERED: Levalbuterol 0.63 MG/3 ML Inhal Soln UD IH PRN (10:06)
[2019-03-09] MEDS ORDERED: Ipratropium 0.02% Inhal Soln (0.5 mg/2.5 ml) UD IH PRN (10:06)
--- NOTE | 2019-03-09 10:56 | CON ---
DATE: 03/09/2019 PULMONARY CONSULT NOTE REFERRING PHYSICIAN: Star Sosa MD REASON FOR CONSULT: Pneumothorax. HISTORY OF PRESENT ILLNESS: This is an 83-year-old male, past medical history significant for dementia, atrial fibrillation, frequent falls, COPD and CHF. The patient presented to the emergency room with complaints of left posterior rib pain, status post unwitnessed fall while in the emergency room. reported that the patient was fell on the ground next to the bed was unable to explain what happened. The patient was assisted up from the floor by a friend and the patient was ambulatory. states that noticed the patient had some left posterior rib tenderness and decided to bring the patient to the emergency room. REVIEW OF SYSTEMS: Unable to be done due to the patient's dementia. PAST MEDICAL HISTORY: CHF, AFib, dementia, history of fall, hyperlipidemia, colon cancer with colostomy, BPH, COPD, history of congenital unilateral left kidney, rheumatoid arthritis and inguinal hernia repair. FAMILY HISTORY: No significant cardiopulmonary disease reported. SOCIAL HISTORY: Former smoker of 40-years quit 18 years ago. No EtOH. No illicit drug use. ALLERGIES: NO KNOWN ALLERGIES. MEDICATIONS: Reviewed. Tylenol 650 every 6 hours p.r.n., aspirin 325 mg p.o. daily, Lipitor 10 mg p.o. at dinner, folic acid 1 mg daily, Namenda XR 28 daily, Lovaza 1 g daily, Exelon patch transdermal daily and Zoloft 75 mg daily. REVIEW OF SYSTEMS: Unable to be done due to the patient's dementia. The patient just mumbling when asked questions. PHYSICAL EXAMINATION: VITAL SIGNS: Blood pressure 140/97, pulse 88 and oxygen saturation 95% on room air. GENERAL: No acute distress. HEENT: Moist mucous membranes. NECK: Supple. No JVD. RESPIRATORY: Left-sided chest wall tenderness. Decreased breath sounds on the left. Chest tube in place and the left side with dressing intact, 75 mL serosanguineous output noted. CARDIOVASCULAR: S1 and S2, irregular rhythm. ABDOMEN: Soft. No distention. Nontender. EXTREMITIES: No bilateral lower extremity noted. NEUROLOGIC: Altered. LABORATORY DATA: WBC 11.7, RBC 4.57, hemoglobin 14.3, hematocrit 43.4 and platelets 231. PT 12.8, INR 1.13 and APTT 35.5. Sodium 143, potassium 4.2, chloride 102, carbon dioxide 32, anion gap 14, BUN 22, creatinine 0.9, GFR greater than 60, random glucose 133, calcium 9.6, total bilirubin 0.8, AST 28, ALT 30, alkaline phosphatase 84, troponin less than 0.01, total protein 7.9, albumin 4.0, globulin 3.9 and albumin-globulin ratio 1. Cervical spine CT, shows no acute fracture traumatic anterolisthesis, moderate left apical pneumothorax and large soft tissue, emphysema in the left lateral soft tissues of the neck. Chest x-ray, left-sided pneumothorax. Chest, abdomen and pelvic CT shows 40% post traumatic left hemopneumothorax, displaced posterior lateral fifth and sixth rib fracture, subcutaneous emphysema extended from the neck chest, abdomen and upper pelvic region. Head CT shows generalize atrophy nonspecific white matter changes. EKG atrial fibrillation. Chest x-ray done yesterday evening, status post chest tube insertion shows chest tube in the left pleural phase, lung only partially reexpanded, known rib fractures are not appreciated on the present study. IMPRESSION AND PLAN: Left hemopneumothorax, status post chest tube placement, history of falls. The patient has status post fall from home with left rib fractures, atrial fibrillation, dementia, history of congestive heart failure, hyperlipidemia, chronic obstructive pulmonary disease and rheumatoid arthritis. We will place the patient on Atrovent and Xopenex nebulizer treatments due to history of chronic obstructive pulmonary disease. We will place the patient and use nebulizers due to current atrial fibrillation. We will place the patient on incentive spirometry use. Unsure the patient will be compliant with spirometry use, but we will attempt for the patient to use incentive spirometry, we will place the patient on Lovenox for deep venous thrombosis prophylaxis. We will place the patient on Protonix for gastric prophylaxis. Repeat chest x-ray in the morning, orthostatic vital signs Q shift will be ordered. It seems that this may have probably just an accidental fall in this patient, but will rule out orthostatic hypotension. We will order venous Doppler to lower extremities to rule out deep venous thrombosis. The patient's echocardiogram from 12/15/2018 reviewed which showed left ventricular function normal, ejection fraction within normal range, trace tricuspid regurgitation, right ventricular systolic pressure was 24. Continue pain management. Monitoring chest tube output. Monitor for air leak. The patient was seen and examined with Dr. Flynn. Discussed assessment and plan as described above. The patient was seen and examined with Herson Delaney, nurse practitioner. Discussed assessment and plan as described above. Thank you for this consult and we will follow with you. Elaina Bains APN Haydee Flynn MD
--- NOTE | 2019-03-09 10:59 | RAD ---
Date of service: 03/09/2019 HISTORY: s/p chest tube COMPARISON: 03/08/2019 TECHNIQUE: 1 view obtained. FINDINGS: LUNGS: No active pulmonary disease. PLEURA: The lung is re-expanded. No pneumothorax visible. Chest tube terminates in the left apex CARDIOVASCULAR: No aortic atherosclerotic calcification present. Normal cardiac size. No pulmonary vascular congestion. OSSEOUS STRUCTURES: No significant abnormalities. VISUALIZED UPPER ABDOMEN: Normal. OTHER FINDINGS: There is persistent subcutaneous emphysema along the left chest wall IMPRESSION: Re-expansion of the left lung
[2019-03-09] MEDS: MEMANTINE HCL 28 MG PO SCH (16:48)
--- NOTE | 2019-03-09 19:34 | HP ---
DATE OF EXAM: 03/09/2019 PRIMARY CARE DOCTOR: Star Sosa MD CHIEF COMPLAINT AND HISTORY OF PRESENT ILLNESS: This is an 83-year-old male, who is coming into the hospital after he had a fall. The patient was found to have left posterior rib pain after the fall. The patient was unable to say exactly what happened. He has underlying dementia, so his history is limited. The patient had a chest x-ray and was found to have pneumothorax. The patient had a left hemopneumothorax and chest tube was placed by Surgery. The patient is not able to give much of a history because of his underlying dementia. PAST MEDICAL HISTORY: 1. CHF secondary to systolic dysfunction, stable. 2. Dementia, Alzheimer's type. 3. Dyslipidemia. 4. Colon cancer with colostomy. PAST SURGICAL HISTORY: 1. Colostomy. 2. Hernia repair. 3. Cyst removal. FAMILY HISTORY: Noncontributory. SOCIAL HISTORY: The patient is a former smoker of 40 years, but quit 18 years ago. He denies alcohol or drugs. MEDICATIONS: Reviewed on the DEC. PHYSICAL EXAMINATION: VITAL SIGNS: Temperature is 98.8, pulse is 88, blood pressure is 140/97, respirations 20, and O2 saturation 95%. Height is 5 feet 8 inches, weight is 145 pounds, and BMI is 22. GENERAL: The patient is lying in bed, comfortable, and in no acute distress. HEENT: Atraumatic and normocephalic. Anicteric sclerae. Moist mucosa. [place] conjunctivae. No oral lesions. NECK: No JVD, anterior and posterior adenopathy, thyromegaly, or bruits. CARDIOVASCULAR: S1 and S2 regular. No murmurs, rubs or gallops. LUNGS: Clear to auscultation bilaterally. No wheezes, rales, or rhonchi. Left chest tube. ABDOMEN: Bowel sounds are positive. Soft, nontender and nondistended. No hepatosplenomegaly. No rebound and no guarding EXTREMITIES: No cyanosis, clubbing, or edema. NEUROLOGIC: Alert, awake, and oriented times zero. No facial asymmetry. Tongue is midline. No uvula deviation. PSYCHIATRIC: Unable to assess. GENITOURINARY: No CVA tenderness. VASCULAR: 2+ pulses in the carotid pulses and pedal pulses. SKIN: No erythema or nodules SPINE: Shows normal curvature. LABORATORY DATA: White count of 11.7, hemoglobin is 14.3, and INR is 1.1. Chemistry showed a sodium 143, potassium is 4.2, creatinine is 0.9, and troponin is 0.01. CT of the chest, abdomen, and pelvis done shows 40% left hemopneumothorax. There are rib fractures in the 5th and 6th ribs in the left. There is massive subcutaneous emphysema extending from the neck through the chest, abdomen, and pelvic area. CT of the head done shows generalized atrophy. EKG shows atrial fibrillation with a rate of 91, QTc is 432. Chest x-ray shows a left-sided pneumothorax. Extremity ultrasound is pending. Repeat chest x-ray shows re-expansion of the left lung. ASSESSMENT: 1. Left-sided pneumothorax with chest tube. 2. Left hemopneumothorax. 3. Subcutaneous emphysema. 4. Atrial fibrillation. 5. Dementia, Alzheimer's type. 6. Chronic obstructive pulmonary disease. 7. Benign prostatic hyperplasia. 8. Dyslipidemia. PLAN: The patient is admitted to the hospital. The patient had left-sided pneumothorax, has a chest tube in. The patient is currently on Exelon for his dementia. He is on Lipitor for his dyslipidemia. He is going to continue with Tylenol as needed. He is on Zoloft for his depression. The patient is on a regular diet. The duplex Doppler for the lower extremity is pending. I have GI and Surgery following the patient. The patient is not on any anticoagulation for the atrial fibrillation. I will get Dr. Karimi to see the patient. The patient also had a cervical spine CT that showed no acute fractures. Kendrick Garcia MD
[2019-03-09] MEDS: Pantoprazole 40 mg EC Tab PO SCH (22:20)
--- NOTE | 2019-03-10 08:39 | CP.PCM.PN ---
<Dayan Lyman - Last Filed: 03/10/19 08:36> Subjective - Date & Time of Evaluation Date of Evaluation: 03/10/19 Time of Evaluation: 06:55 - Subjective Subjective: General Surgery Dr. Rosales Pt seen and examined @bedside. No acute events overnight. Pt demented @baseline. ROS unobtainable L CT 50cc x24hrs serosanguinous Objective - Vital Signs/Intake and Output Vital Signs (last 24 hours): Temp Pulse Resp BP Pulse Ox 98.1 F 92 H 20 115/66 95 03/09/19 22:26 03/09/19 22:26 03/09/19 22:26 03/09/19 22:26 03/09/19 14:00 Intake and Output: 03/10/19 03/10/19 06:59 18:59 Intake Total 60 Balance 60 - Medications Medications: Current Medications Acetaminophen (Tylenol 325mg Tab) 650 mg PO Q6H PRN PRN Reason: Pain, moderate (4-7) Aspirin (Ecotrin) 325 mg PO DAILY [facility] Last Admin: 03/09/19 15:06 Dose: 325 mg Atorvastatin Calcium (Lipitor) 10 mg PO DIN [facility] Last Admin: 03/09/19 18:07 Dose: 10 mg Enoxaparin Sodium (Lovenox) 40 mg SC DAILY [facility]; Protocol Folic Acid (Folic Acid) 1 mg PO DAILY [facility] Last Admin: 03/09/19 15:07 Dose: 1 mg Ipratropium [place] (Atrovent) 0.5 mg IH [id number] PRN PRN Reason: Shortness of Breath Levalbuterol HCl (Xopenex) 0.63 mg IH [id number] PRN PRN Reason: Shortness of Breath Memantine Hcl [ Namenda Xr] 28 Mg ( Home Med) 28 mg PO DAILY [facility] Last Admin: 03/09/19 16:48 Dose: Not Given Raper-2-Ezsu Ethyl Esters (Lovaza) 1 gm PO DAILY [facility] Last Admin: 03/09/19 15:07 Dose: 1 gm Pantoprazole Sodium (Protonix Ec Tab) 40 mg PO HS [facility] Last Admin: 03/09/19 22:20 Dose: Not Given Rivastigmine (Exelon 9.5 Mg/24 Hr Patch) 1 patch TD DAILY [facility] Last Admin: 03/09/19 09:55 Dose: 1 patch Sertraline HCl (Zoloft) 75 mg PO DAILY [facility] Last Admin: 03/09/19 15:07 Dose: 75 mg - Labs Labs: 03/08/19 11:35 03/08/19 11:35 PT 12.8 SECONDS (9.4-12.5) H 03/08/19 11:35 INR 1.13 03/08/19 11:35 APTT 35.5 Seconds (26.9-38.3) 03/08/19 11:35 - Constitutional Appears: Non-toxic, No Acute Distress - Head Exam Head Exam: NORMAL INSPECTION - Eye Exam Eye Exam: Normal appearance - ENT Exam ENT Exam: Mucous Membranes Moist - Respiratory Exam Respiratory Exam: NORMAL BREATHING PATTERN. absent: Accessory Muscle Use, Respiratory Distress Additional comments: L chest tube in place. on wall sxn, no leak dressing c/d/i decreased subQ emphysema - Cardiovascular Exam Cardiovascular Exam: absent: Bradycardia, Tachycardia - GI/Abdominal Exam GI & Abdominal Exam: Soft. absent: Distended Additional comments: ostomy in place - Extremities Exam Extremities Exam: Normal Inspection - Neurological Exam Neurological Exam: Altered - Psychiatric Exam Psychiatric exam: Normal Affect, Normal Mood - Skin Skin Exam: Dry, Normal Color, Warm Assessment and Plan - Assessment and Plan (Free Text) Assessment: 83 y/o M with left hemopneumothorax s/p chest tube placement Plan: - f/u Pulmonary Recs - L CT on wall suction; possible water seal today - Monitor L CT output - cont Tylenol PRN pain - maintain Mittens to prevent pulling on tube Pt discussed w/ Dr. Bobby Lyman PGY3 <Bimal Rosales - Last Filed: 03/10/19 08:57> Objective - Vital Signs/Intake and Output Vital Signs (last 24 hours): Temp Pulse Resp BP Pulse Ox 98.1 F 92 H 20 115/66 95 03/09/19 22:26 03/09/19 22:26 03/09/19 22:26 03/09/19 22:26 03/09/19 14:00 Intake and Output: 03/10/19 03/10/19 06:59 18:59 Intake Total 60 Balance 60 - Medications Medications: Current Medications Acetaminophen (Tylenol 325mg Tab) 650 mg PO Q6H PRN PRN Reason: Pain, moderate (4-7) Aspirin (Ecotrin) 325 mg PO DAILY [facility] Last Admin: 03/09/19 15:06 Dose: 325 mg Atorvastatin Calcium (Lipitor) 10 mg PO DIN [facility] Last Admin: 03/09/19 18:07 Dose: 10 mg Enoxaparin Sodium (Lovenox) 40 mg SC DAILY [facility]; Protocol Folic Acid (Folic Acid) 1 mg PO DAILY [facility] Last Admin: 03/09/19 15:07 Dose: 1 mg Ipratropium [place] (Atrovent) 0.5 mg IH [id number] PRN PRN Reason: Shortness of Breath Levalbuterol HCl (Xopenex) 0.63 mg IH [id number] PRN PRN Reason: Shortness of Breath Memantine Hcl [ Namenda Xr] 28 Mg ( Home Med) 28 mg PO DAILY [facility] Last Admin: 03/09/19 16:48 Dose: Not Given Rnxid-7-Bypz Ethyl Esters (Lovaza) 1 gm PO DAILY [facility] Last Admin: 03/09/19 15:07 Dose: 1 gm Pantoprazole Sodium (Protonix Ec Tab) 40 mg PO HS [facility] Last Admin: 03/09/19 22:20 Dose: Not Given Rivastigmine (Exelon 9.5 Mg/24 Hr Patch) 1 patch TD DAILY [facility] Last Admin: 03/09/19 09:55 Dose: 1 patch Sertraline HCl (Zoloft) 75 mg PO DAILY [facility] Last Admin: 03/09/19 15:07 Dose: 75 mg - Labs Labs: 03/08/19 11:35 03/08/19 11:35 PT 12.8 SECONDS (9.4-12.5) H 03/08/19 11:35 INR 1.13 03/08/19 11:35 APTT 35.5 Seconds (26.9-38.3) 03/08/19 11:35 Assessment and Plan - Assessment and Plan (Free Text) Plan: Patient was seen, evaluated and examined by me at the bedside. I agree with assessment and plan as stated in the resident's note.
--- NOTE | 2019-03-10 10:20 | RAD ---
Date of service: 03/10/2019 HISTORY: s/p cxr COMPARISON: 03/09/2019 TECHNIQUE: 1 view obtained. FINDINGS: LUNGS: No active pulmonary disease. PLEURA: Chest tube in the left lung apex. No evidence of pneumothorax CARDIOVASCULAR: Aortic calcification Normal cardiac size. No pulmonary vascular congestion. OSSEOUS STRUCTURES: Displaced rib fractures of the 5th and 6th ribs on the left VISUALIZED UPPER ABDOMEN: Normal. OTHER FINDINGS: There is a small amount of subcutaneous emphysema on the left IMPRESSION: No evidence of pneumothorax
[2019-03-10] MEDS: Aspirin 325 mg EC Tablets PO SCH (10:52)
[2019-03-10] MEDS: Enoxaparin 40 mg Syringe SC SCH (10:53)
[2019-03-10] MEDS: Omega-3-Acid Ethyl Esters 1 GM Cap PO SCH (10:53)
[2019-03-10] MEDS: MEMANTINE HCL 28 MG PO SCH ×2 (11:30→14:06)
[2019-03-10] MEDS ORDERED: MEMANTINE HCL 28 MG PO SCH (11:46)
--- NOTE | 2019-03-10 13:17 | PN ---
DATE: 03/10/2019 PULMONARY PROGRESS NOTE REFERRING PHYSICIAN: Star Sosa MD SUBJECTIVE: The patient is seen, lying in bed this morning. No acute distress. No overnight events reported. No hemoptysis, hematosis, hematuria, diarrhea, leg swelling reported. Chest tube drainage noted bout 50 mL in the last 24 hours serosanguineous. OBJECTIVE: GENERAL: No acute distress. VITAL SIGNS: Blood pressure 115/66, pulse 92, temperature 98.1, oxygen saturation 95% on nasal cannula. HEENT: Moist mucous membranes. NECK: Supple. No JVD. RESPIRATORY: Fair airflow. Decreased breath sounds on the left. CARDIOVASCULAR: S1 and S2, irregular. ABDOMEN: Soft, nontender. No distention. EXTREMITIES: No bilateral lower extremity edema. NEUROLOGIC: Altered due to the patient's diagnosis of advanced dementia. MEDICATIONS: Reviewed. Tylenol 650 mg every 6 hours p.r.n., aspirin 325 mg daily, Lipitor 10 mg at dinner, Lovenox 40 mg subcutaneously daily, folic acid 1 mg daily, Atrovent 0.5 mg inhalation every 6 hours p.r.n., Xopenex 0.63 mg inhalation every 6 hours p.r.n., Namenda 28 mg daily, Lovaza 1 g daily, Protonix 40 mg at bedtime, Exelon patch transdermal daily and Zoloft 75 mg daily. LABORATORY DATA: Chest x-ray shows no evidence of pneumothorax, small amount of subcutaneous emphysema on the left, extremity ultrasound still pending. IMPRESSION AND PLAN: Left hemopneumothorax, status post chest tube placement, history of falls. The patient has status post fall from home which resulted in left rib fractures. The patient currently with atrial fibrillation, history of dementia, history of congestive heart failure, hyperlipidemia, chronic obstructive pulmonary disease and rheumatoid arthritis. Continue inhaled bronchodilators, continue incentive spirometry if the patient is able to use and follow direction. Continue Lovenox with deep venous thrombosis prophylaxis, continue gastric prophylaxis. Dr. Flynn spoke with the patient's daughter yesterday regarding the patient not being on any anticoagulation for atrial fibrillation. Daughter reports that the patient has history of multiple falls at home and they understand the risk that there is a high risk for thromboembolic disease, but they determined that they do not want the patient to be anticoagulated at this time due to history of falls at home. Continue to monitor chest tube, fall precautions, aspiration precaution, head of bed elevated at 45 degrees, pressure ulcer precautions, pain managements. The patient was seen and examined with Dr. Flynn. Discussed assessment and plan as described above. The patient was seen and examined with Herson Delaney, nurse practitioner. Discussed assessment and plan as described above. Thank you for this consult and we will follow with you. Elaina Bains APN Haydee Flynn MD
--- NOTE | 2019-03-10 14:31 | CON ---
DATE OF CONSULTATION: 03/10/2019 REFERRING PHYSICIAN: Dr. Garcia REASON FOR CONSULTATION: Atrial fibrillation. HISTORY: This is an 83-year-old man, well known to me from outpatient followup, who was admitted after a fall at home. He suffered a rib fracture and developed a hemothorax, which required chest tube placement. He is seen lying in bed at the present time. He has advanced dementia and is minimally communicative. He does have a history of chronic atrial fibrillation, but has not been on anticoagulant therapy because of his previous falls and risk of self injury. He has had bleeding issues in the past as well. He appears to be in no distress at the present time. PAST MEDICAL HISTORY: Notable for colon cancer in this past for which he underwent hemicolectomy. He has a solitary kidney and a history of arthritis. In addition to his colostomy, he has a prior herniorrhaphy. FAMILY HISTORY: Both parents are , cause unknown. SOCIAL HISTORY: He is a former smoker. He does not drink. He is and lives at home with his and family and is retired. CURRENT MEDICATIONS: Aspirin, Atrovent, Exelon, folic acid, Lipitor, Lovaza, subcutaneous Lovenox, Namenda, Protonix, Xopenex and Zoloft. REVIEW OF SYSTEMS: A 12-point review of systems is unobtainable from the patient or review of family input in the emergency room and no significant abnormalities are noted. PHYSICAL EXAMINATION: GENERAL: He is a thin elderly man. VITAL SIGNS: His blood pressure is 116/66 with a pulse of 90, respirations are 14. He is afebrile. HEENT: Normocephalic, atraumatic. NECK: Supple. No JVD noted. CHEST: Diminished breath sounds at the left base. Chest tube in place on the left. HEART: PMI is normal in position. No pathological murmurs or gallops noted. ABDOMEN: Soft and nontender with normoactive bowel sounds. A colostomy is present. EXTREMITIES: No clubbing, cyanosis, or edema. SKIN: Warm and dry. PSYCHIATRIC: Unable to assess. NEUROLOGIC: Responds to voice, but does not answer questions. Moving all four extremities. DIAGNOSTIC DATA: White count 1.7, hemoglobin and hematocrit of 14.3 and 43.4 with a platelet count of 231,000. PT/PTT 12.8 and 35.5. Potassium 4.2, BUN and creatinine 22 and 0.9. Troponin is negative. Electrocardiogram reveals atrial fibrillation with nonspecific abnormalities. Chest x-ray following chest tube placement reveals improvement in his pneumothorax and mild haziness on the left. Initial chest x-ray revealed moderate left pneumothorax. IMPRESSION: 1. Recent fall with rib fracture and resultant pneumothorax and successfully re-expanded following chest tube placement. 2. Chronic atrial fibrillation with probable conduction system disease given his controlled rate in the absence of negative chronotropic therapy. The patient remains off anticoagulation given the prior bleeding issues and his risk for falls. At this point, the risks appear to outweigh benefits of anticoagulant therapy despite his chronic atrial fibrillation. 3. Advanced dementia. 4. History of colon cancer status post resection. RECOMMENDATIONS: Recent echocardiogram was relatively normal. This does not need to be repeated at this time. He remains off rate control therapy given his adequate resting heart rate and continued withholding of anticoagulation is appropriate at this time given his recent clinical events and history. I will be happy to follow along as needed. Merlin Karimi MD
--- NOTE | 2019-03-10 21:29 | PN ---
DATE: 03/10/2019 SUBJECTIVE: The patient is an 83-year-old white male with a long history of dementia, CAD, hypertension, history of colon cancer in the past, and history of BPH in the past. The patient has recently had more unsteady gait. He recently fell and he was found to have left pneumothorax, which was found on chest tube insertion at [place] and pneumohemothorax. The patient was seen in consultation with Dr. Rosales. Chest tube was placed. The patient is now doing well with minimal chest tube drainage. PHYSICAL EXAMINATION: GENERAL: He is cooperative, but not oriented to person, place, or time. CHEST: Clear to auscultation and percussion. HEART: Regular sinus rhythm. ABDOMEN: Soft. Bowel sounds are normoactive. EXTREMITIES: Without cyanosis, clubbing or edema. dementia, otherwise unremarkable. Star Sosa MD
[2019-03-10] MEDS: Pantoprazole 40 mg EC Tab PO SCH (21:48)
--- NOTE | 2019-03-11 07:35 | CP.PCM.PN ---
Subjective - Date & Time of Evaluation Date of Evaluation: 03/11/19 Time of Evaluation: 06:35 - Subjective Subjective: General Surgery Pt seen and examined. No acute events overnight. Chest tube without air leak. Pt appears to be resting comfortably. Objective - Vital Signs/Intake and Output Vital Signs (last 24 hours): Temp Pulse Resp BP Pulse Ox 97.4 F L 93 H 20 156/78 H 97 03/10/19 21:53 03/10/19 21:53 03/10/19 21:53 03/10/19 21:53 03/10/19 21:53 Intake and Output: 03/11/19 03/11/19 06:59 18:59 Intake Total 240 Balance 240 - Medications Medications: Current Medications Acetaminophen (Tylenol 325mg Tab) 650 mg PO Q6H PRN PRN Reason: Pain, moderate (4-7) Aspirin (Ecotrin) 325 mg PO DAILY [facility] Last Admin: 03/10/19 10:52 Dose: 325 mg Atorvastatin Calcium (Lipitor) 10 mg PO DIN [facility] Last Admin: 03/10/19 18:14 Dose: 10 mg Enoxaparin Sodium (Lovenox) 40 mg SC DAILY [facility]; Protocol Last Admin: 03/10/19 10:53 Dose: 40 mg Folic Acid (Folic Acid) 1 mg PO DAILY [facility] Last Admin: 03/10/19 10:53 Dose: 1 mg Ipratropium [place] (Atrovent) 0.5 mg IH [id number] PRN PRN Reason: Shortness of Breath Levalbuterol HCl (Xopenex) 0.63 mg IH [id number] PRN PRN Reason: Shortness of Breath Memantine Hcl [ Namenda Xr] 28 Mg ( Home Med) 28 mg PO DAILY [facility] Last Admin: 03/10/19 11:30 Dose: 28 mg [id number] Ethyl Esters (Lovaza) 1 gm PO DAILY [facility] Last Admin: 03/10/19 10:53 Dose: 1 gm Pantoprazole Sodium (Protonix Ec Tab) 40 mg PO HS [facility] Last Admin: 03/10/19 21:48 Dose: 40 mg Rivastigmine (Exelon 9.5 Mg/24 Hr Patch) 1 patch TD DAILY [facility] Last Admin: 03/10/19 10:53 Dose: 1 patch Sertraline HCl (Zoloft) 75 mg PO DAILY [facility] Last Admin: 03/10/19 10:53 Dose: 75 mg - Labs Labs: 03/08/19 11:35 03/08/19 11:35 PT 12.8 SECONDS (9.4-12.5) H 03/08/19 11:35 INR 1.13 03/08/19 11:35 APTT 35.5 Seconds (26.9-38.3) 03/08/19 11:35 - Constitutional Appears: Non-toxic, No Acute Distress - Head Exam Head Exam: ATRAUMATIC, NORMOCEPHALIC - Respiratory Exam Respiratory Exam: NORMAL BREATHING PATTERN. absent: Accessory Muscle Use, Respiratory Distress Additional comments: chest tube in place with 20cc/24hr serosanguinous drainage - GI/Abdominal Exam GI & Abdominal Exam: Soft. absent: Distended, Tenderness - Extremities Exam Extremities Exam: Calf Tenderness, Normal Capillary Refill - Neurological Exam Neurological Exam: Altered (dementia ) - Skin Skin Exam: Dry, Warm Assessment and Plan - Assessment and Plan (Free Text) Assessment: 83 y/o M with left hemopneumothorax s/p chest tube placement Plan: - L CT on water seal, repeat CXR in 4-6 hours or if clinical picture changes - Monitor L CT output - cont Tylenol PRN pain - maintain Mittens to prevent pulling on tube - IS use if possible - D/W Dr. Bobby Quevedo PGY4
[2019-03-11] MEDS: Aspirin 325 mg EC Tablets PO SCH (09:38)
[2019-03-11] MEDS: Enoxaparin 40 mg Syringe SC SCH (09:39)
[2019-03-11] MEDS: Omega-3-Acid Ethyl Esters 1 GM Cap PO SCH (09:39)
[2019-03-11] MEDS: MEMANTINE HCL 28 MG PO SCH (09:39)
--- NOTE | 2019-03-11 10:33 | RAD ---
Date of service: 03/11/2019 HISTORY: s/p cxr COMPARISON: 03/10/2019 TECHNIQUE: 1 view obtained. FINDINGS: LUNGS: No active pulmonary disease. PLEURA: Chest tube remains in place. No evidence of pneumothorax CARDIOVASCULAR: Aortic calcification Normal cardiac size. No pulmonary vascular congestion. OSSEOUS STRUCTURES: No significant abnormalities. VISUALIZED UPPER ABDOMEN: Normal. OTHER FINDINGS: None. IMPRESSION: No active disease.
--- NOTE | 2019-03-11 10:34 | RAD ---
Date of service: 03/11/2019 HISTORY: s/p CT to waterseal COMPARISON: Earlier same day TECHNIQUE: 1 view obtained. FINDINGS: LUNGS: No active pulmonary disease. PLEURA: No significant pleural effusion identified, no pneumothorax apparent. CARDIOVASCULAR: No aortic atherosclerotic calcification present. Normal cardiac size. No pulmonary vascular congestion. OSSEOUS STRUCTURES: No significant abnormalities. VISUALIZED UPPER ABDOMEN: Normal. OTHER FINDINGS: None. IMPRESSION: No evidence of pneumothorax
--- NOTE | 2019-03-11 11:11 | US ---
HISTORY: Leg pain and swelling. Evaluate for DVT PHYSICIAN(S): Luiz Hernandez MD. TECHNIQUE: Duplex sonography and color-flow Doppler with graded compression were used to evaluate the deep venous systems of both lower extremities. FINDINGS: The visualized deep venous systems of both lower extremities are sonographically normal and compressible. Normal wave forms and augmentation are seen. There is no sonographic evidence for deep venous thrombosis in the visualized segments of both lower extremities. IMPRESSION: No sonographic evidence for deep venous thrombosis in the visualized segments of both lower extremities.
[2019-03-11 11:14] LABS: HEMOGLOBIN 12.5 g/dL (14.0-18.0); MEAN CELL VOLUME 94.9 fl (80.0-105.0); MEAN CORPUSCULAR HEMOGLOBIN 30.5 pg (25.0-35.0); MEAN CORPUSCULAR HGB CONC 32.1 g/dl (31.0-37.0); MEAN PLATELET VOLUME 11.1 fl (7.0-11.0); RBC 4.1 10^6/uL (3.5-6.1); RED CELL DISTRIBUTION WIDTH 13.8 % (11.5-14.5); WHITE BLOOD COUNT 8.8 10^3/uL (4.5-11.0)
[2019-03-11 11:21] LABS: BLOOD UREA NITROGEN 23 mg/dL (7-21); CALCIUM 9.3 mg/dL (8.4-10.5); GFR NON-AFRICAN AMERICAN > 60
--- NOTE | 2019-03-11 12:22 | CP.PCM.PCO ---
Additional Comments - Additional Comments Additional Comments: Pt seen and examined at bedside. Awake but confused. In no acute distress. Pt is currently admitted s/p fall, sustained contiguous displaced posteriol lateral 5th and 6th rib fracture and L hemopneumothorax. Pt has a chest tube, sx planned to remove it today after lunch. Will continue to follow. Impressions Extremity Ultrasound 03/09/19 10:05 IMPRESSION: No sonographic evidence for deep venous thrombosis in the visualized segments of both lower extremities. Chest X-Ray 03/11/19 06:00 IMPRESSION: No active disease. Chest X-Ray 03/11/19 10:00 IMPRESSION: No evidence of pneumothorax
--- NOTE | 2019-03-11 13:26 | PN ---
DATE: 03/11/2019 SUBJECTIVE: An 83-year-old white male admitted to the hospital after a fall with hemopneumothorax, chest tube insertion in the left. The patient doing well. The patient has advanced dementia. His white count is 11,700. His hemoglobin is 14.3. There is minimal drainage from his chest tube. Vital signs are stable. He is afebrile. Blood pressure 156/78. We will discuss with Surgery about clamping the chest tube . PHYSICAL EXAMINATION: Unchanged. CHEST: Clear. HEART: Regular sinus rhythm. EXTREMITIES: Without cyanosis, clubbing, or edema. The patient has advanced dementia. He has some restraints to not pull off the chest tube. Star Sosa MD
--- NOTE | 2019-03-11 13:46 | PN ---
DATE: 03/11/2019 PULMONARY PROGRESS NOTE REFERRING PHYSICIAN: Dr. Star Sosa. SUBJECTIVE: The patient is seen lying in bed, awake. No acute distress. is at bedside. No overnight events reported. The patient is confused. Nursing staff reports that Surgical Team plans to remove chest tube today; reports that the patient had about 120 mL of drainage from chest tube in last 24 hours. No hemoptysis, hematemesis, hematuria, diarrhea, or leg swelling reported. OBJECTIVE: GENERAL: No acute distress. VITAL SIGNS: Blood pressure 156/78, pulse 93, temperature 97.4, and oxygen saturation 97%. HEENT: Moist mucous membranes. NECK: Supple. No JVD. RESPIRATORY: Decreased breath sounds. Poor effort made by the patient. Chest tube in place; serosanguineous drainage. ABDOMEN: Soft and nontender. No distention. CARDIOVASCULAR: S1 and S2. EXTREMITIES: No bilateral lower extremity edema. NEUROLOGIC: Awake; altered due to dementia. MEDICATIONS: Reviewed. Tylenol 650 mg every 6 hours p.r.n., aspirin 325 mg daily, Lipitor 10 mg at dinner, Lovenox 40 mg subcutaneously daily, folic acid 1 mg daily, Atrovent 0.5 mg inhalation every 6 hours p.r.n., Xopenex 0.63 mg inhalation every 6 hours p.r.n., Namenda 28 mg daily, Lovaza 1 g daily, Protonix 40 mg at bedtime, Exelon patch transdermal daily, and Zoloft 75 mg daily. LABORATORY DATA: Reviewed. WBC 8.8, RBC 4.10, hemoglobin 12.5, hematocrit 38.9, and platelets 230. Sodium 143, potassium 4.0, chloride 103, carbon dioxide 30, anion gap 14, BUN 23, creatinine 0.9, GFR greater than 60, random glucose 153, and calcium 9.3. Chest x-ray shows no evidence of pneumothorax. IMPRESSION AND PLAN: Left hemopneumothorax, status post chest tube placement. Chest tube is presently on water seal. The patient has history of falls. The patient is status post fall from home which resulted in left rib fractures and hemopneumothorax. The patient with atrial fibrillation, history of dementia, history of congestive heart failure, hyperlipidemia, chronic obstructive pulmonary disease, and rheumatoid arthritis. Continue inhaled bronchodilators, gastric prophylaxis, and deep venous thrombosis prophylaxis. The patient is unable to use incentive spirometry. Orthostatic vital signs unable to be done.Pending chest tube removal. Fall precautions, aspiration precautions, head of bed elevated at 45 degrees. Pressure ulcer precautions. Spoke with not to feed patient when he is tired or sleepy to avoid aspiration. Verbalized understanding. Aspiration precaution. The patient was seen and examined with Dr. Flynn. Discussed assessment and plan as described above. The patient was seen and examined with Herson Delaney, nurse practitioner. Discussed assessment and plan as described above. Thank you for this consult. We will follow with you. Elaina Bains APN Haydee Flynn MD [facility]
[2019-03-11 15:01] LABS: URINE BILIRUBIN NEGATIVE (NEGATIVE); URINE BLOOD NEGATIVE (NEGATIVE); URINE GLUCOSE (UA) NEGATIVE (NEGATIVE); URINE LEUKOCYTE ESTERASE SMALL Leu/uL (NEGATIVE); URINE PROTEIN NEGATIVE mg/dL (<30 mg/dL); URINE UROBILINOGEN 0.2 E.U./dL (<1 E.U./dL)
--- NOTE | 2019-03-11 15:01 | RAD ---
Date of service: 03/11/2019 HISTORY: post CT pull COMPARISON: 03/11/2019 TECHNIQUE: 1 view obtained. FINDINGS: LUNGS: No active pulmonary disease. PLEURA: This chest tube has been removed. There is a minimal left apical pneumothorax CARDIOVASCULAR: No aortic atherosclerotic calcification present. Normal cardiac size. No pulmonary vascular congestion. OSSEOUS STRUCTURES: No significant abnormalities. VISUALIZED UPPER ABDOMEN: Normal. OTHER FINDINGS: None. IMPRESSION: This chest tube has been removed. There is a minimal left apical pneumothorax
[2019-03-11 15:02] LABS: URINE APPEARANCE CLEAR (CLEAR); URINE COLOR YELLOW (YELLOW)
[2019-03-11 15:24] LABS: URINE BACTERIA FEW /hpf; URINE RBC 0 - 2 /hpf (0-2)
[2019-03-11] MEDS: Pantoprazole 40 mg EC Tab PO SCH (21:33)
--- NOTE | 2019-03-12 08:16 | CP.PCM.PN ---
Subjective - Date & Time of Evaluation Date of Evaluation: 03/12/19 Time of Evaluation: 06:40 - Subjective Subjective: General Surgery Pt seen and examined. No acute events overnight. Pt appears to be resting comfortably. Chest dressing intact Objective - Vital Signs/Intake and Output Vital Signs (last 24 hours): Temp Pulse Resp BP Pulse Ox 97.9 F 80 20 125/80 95 03/11/19 22:30 03/11/19 22:30 03/11/19 22:30 03/11/19 22:30 03/11/19 22:30 - Medications Medications: Current Medications Acetaminophen (Tylenol 325mg Tab) 650 mg PO Q6H PRN PRN Reason: Pain, moderate (4-7) Aspirin (Ecotrin) 325 mg PO DAILY [facility] Last Admin: 03/11/19 09:38 Dose: 325 mg Atorvastatin Calcium (Lipitor) 10 mg PO DIN [facility] Last Admin: 03/11/19 18:14 Dose: 10 mg Enoxaparin Sodium (Lovenox) 40 mg SC DAILY [facility]; Protocol Last Admin: 03/11/19 09:39 Dose: 40 mg Folic Acid (Folic Acid) 1 mg PO DAILY [facility] Last Admin: 03/11/19 09:39 Dose: 1 mg Ipratropium [place] (Atrovent) 0.5 mg IH [id number] PRN PRN Reason: Shortness of Breath Levalbuterol HCl (Xopenex) 0.63 mg IH [id number] PRN PRN Reason: Shortness of Breath Memantine Hcl [ Namenda Xr] 28 Mg ( Home Med) 28 mg PO DAILY [facility] Last Admin: 03/11/19 09:39 Dose: 28 mg [id number] Ethyl Esters (Lovaza) 1 gm PO DAILY [facility] Last Admin: 03/11/19 09:39 Dose: 1 gm Pantoprazole Sodium (Protonix Ec Tab) 40 mg PO HS [facility] Last Admin: 03/11/19 21:33 Dose: 40 mg Rivastigmine (Exelon 9.5 Mg/24 Hr Patch) 1 patch TD DAILY [facility] Last Admin: 03/11/19 09:38 Dose: 1 patch Sertraline HCl (Zoloft) 75 mg PO DAILY [facility] Last Admin: 03/11/19 09:40 Dose: 75 mg - Labs Labs: 03/11/19 10:50 03/11/19 10:50 PT 12.8 SECONDS (9.4-12.5) H 03/08/19 11:35 INR 1.13 03/08/19 11:35 APTT 35.5 Seconds (26.9-38.3) 03/08/19 11:35 - Constitutional Appears: Non-toxic, No Acute Distress - Head Exam Head Exam: ATRAUMATIC, NORMOCEPHALIC - Respiratory Exam Respiratory Exam: Chest Wall Tenderness (L posterior), NORMAL BREATHING PATTERN. absent: Respiratory Distress Additional comments: dressing dry/intact - GI/Abdominal Exam GI & Abdominal Exam: Soft. absent: Distended, Tenderness - Extremities Exam Extremities Exam: Normal Capillary Refill. absent: Calf Tenderness - Neurological Exam Neurological Exam: Awake - Skin Skin Exam: Dry, Warm Assessment and Plan - Assessment and Plan (Free Text) Assessment: 83 y/o M with left hemopneumothorax s/p chest tube placement Plan: -F/U AM CXR - cont Tylenol PRN pain - IS use if possible - D/W Dr. Bobby Quevedo PGY4
--- NOTE | 2019-03-12 08:30 | RAD ---
Date of service: 03/12/2019 HISTORY: s/p chest tube removal COMPARISON: 03/11/2019 TECHNIQUE: 1 view obtained. FINDINGS: LUNGS: No active pulmonary disease. PLEURA: No significant pleural effusion identified, no pneumothorax apparent. CARDIOVASCULAR: Aortic calcification Normal cardiac size. No pulmonary vascular congestion. OSSEOUS STRUCTURES: No significant abnormalities. VISUALIZED UPPER ABDOMEN: Normal. OTHER FINDINGS: None. IMPRESSION: No pneumothorax
--- NOTE | 2019-03-12 09:41 | PN ---
DATE: 03/12/2019 SUBJECTIVE: An 83-year-old white male who has advanced dementia, history of colon cancer, admitted to the hospital after fall with hemopneumothorax, left chest tube was removed yesterday. Repeat chest x-ray last night showed minimal left apical pneumothorax and chest x-ray was scheduled for this morning. PHYSICAL EXAMINATION: GENERAL: The patient is awake. He is not oriented to person, place, or time, but he is comfortable. No complaints. VITAL SIGNS: Stable. PLAN: Plan is to repeat chest x-ray, start physical therapy, occupational therapy, possible subacute rehab. The patient does not verbally communicate with to establish the pain scale. He has restraints on his hands and does not pull out his IVs or tubes. Otherwise, he is comfortable and tolerating his diet well. Star Sosa MD
--- NOTE | 2019-03-12 11:55 | PN ---
DATE: 03/12/2019 PULMONARY PROGRESS NOTE REFERRING PHYSICIAN: Star Sosa MD SUBJECTIVE: The patient is seen lying in bed, no acute distress. No overnight events reported. No hemoptysis, hematemesis, hematuria, diarrhea, leg swelling reported. Chest tube was removed yesterday. PHYSICAL EXAMINATION: GENERAL: No acute distress. VITAL SIGNS: Blood pressure 119/69, pulse 82, temperature 97.4, oxygen saturation 95 on room air. HEENT: Moist mucous membranes. NECK: Supple. No JVD. RESPIRATORY: Fair airflow bilaterally. CARDIOVASCULAR: S1 and S2. ABDOMEN: Soft, nontender. No distention. EXTREMITIES: No bilateral lower extremity edema. NEUROLOGIC: Altered dementia. LABORATORY DATA: Reviewed. Urine culture final, no growth. Chest x-ray, no pneumothorax. No active pulmonary disease. MEDICATIONS: Reviewed. Tylenol 650 every 6 hours p.r.n., aspirin 325 mg p.o. daily, Lipitor 10 mg, Lovenox 40 mg subcu daily, folic acid 1 mg daily, Ativan 0.5 mg inhalation every 6 hours p.r.n., Xopenex 0.63 mg inhalation every 6 hours p.r.n., Namenda XR 28 mg daily, Lovaza 1 g daily, Protonix 40 mg h.s., Exelon patch transdermal daily, Zoloft 25 mg daily. IMPRESSION AND PLAN: Left hemopneumothorax status post chest tube placement which was removed yesterday. The patient is also status post fall from home which resulted in left rib fractures, which led to hemopneumothorax. The patient has history of multiple falls at home, history of atrial fibrillation, history of dementia, congestive heart failure, hyperlipidemia, chronic obstructive pulmonary disease, rheumatoid arthritis. Pulmonary point of view, we will change as-needed nebulizers to routine for pulmonary toileting. Continue to use incentive spirometry if possible. Fall precautions. Aspiration precautions. Head of bed elevated 45 degrees. Pressure ulcer precautions. Recommend physical therapy for this patient. The patient was seen and examined by Dr. Flynn. Discussed assessment and plan as described above. The patient was seen and examined by Herson Delaney, nurse practitioner. Discussed assessment and plan as described above. Thank you for this consult. We will follow with you. Elaina Bains APN Haydee Flynn MD [facility] # [id number]
[2019-03-12] MEDS: Enoxaparin 40 mg Syringe SC SCH (12:00)
[2019-03-12] MEDS: Omega-3-Acid Ethyl Esters 1 GM Cap PO SCH (12:01)
[2019-03-12] MEDS: Aspirin 325 mg EC Tablets PO SCH (12:01)
[2019-03-12] MEDS: MEMANTINE HCL 28 MG PO SCH (12:03)
[2019-03-12] MEDS: Levalbuterol 0.63 MG/3 ML Inhal Soln UD IH SCH ×2 (13:28→20:30)
[2019-03-12] MEDS: Ipratropium 0.02% Inhal Soln (0.5 mg/2.5 ml) UD IH SCH ×2 (13:28→20:30)
[2019-03-12] MEDS ORDERED: Pantoprazole 40 mg Susp UD PO ONE (20:30)
[2019-03-12 23:09] VITALS: O2SAT 95
[2019-03-13] MEDS: Pantoprazole 40 mg EC Tab PO SCH (05:01)
[2019-03-13] MEDS: Levalbuterol 0.63 MG/3 ML Inhal Soln UD IH SCH ×2 (07:16→14:47)
[2019-03-13] MEDS: Ipratropium 0.02% Inhal Soln (0.5 mg/2.5 ml) UD IH SCH ×2 (07:16→14:47)
[2019-03-13 08:32] VITALS: TEMP 97.4
--- NOTE | 2019-03-13 09:33 | PN ---
DATE: 03/13/2019 SUBJECTIVE: An 83-year-old white male, status post multiple falls, history of dementia, history of colon cancer. The patient had a left hemopneumothorax, status post chest tube. Chest tube is out, x-ray is clear. The patient is still severely demented needs physical therapy and occupational therapy. I discussed with the family, possible placement in [facility] to increase his ambulation and prevent further falls. The patient is awake, but not oriented to person, time or place. His chest is clear. His heart examination regular sinus rhythm. The patient will need extensive physical therapy and reinstitution of ambulation. His abdomen is soft. Extremities without cyanosis, clubbing or edema. There is no skin breakdown at this point. PLAN: Physical therapy evaluation treatment, start ambulation and search for an appropriate [facility] referral. Star Sosa MD
[2019-03-13] MEDS: Enoxaparin 40 mg Syringe SC SCH (10:12)
[2019-03-13] MEDS: Omega-3-Acid Ethyl Esters 1 GM Cap PO SCH (10:12)
[2019-03-13] MEDS: Aspirin 325 mg EC Tablets PO SCH (10:13)
--- NOTE | 2019-03-13 11:01 | CP.PCM.PCO ---
Additional Comments - Additional Comments Additional Comments: D/W PMD, pt medically cleared for dc to [facility] today if bed available.
--- NOTE | 2019-03-13 13:33 | PN ---
DATE: 03/13/2019 PULMONARY PROGRESS NOTE REFERRING PHYSICIAN: Star Sosa MD SUBJECTIVE: The patient is seen lying in bed. Awake and nonverbal. is at bedside. No acute distress. No overnight events reported. No hemoptysis, hematemesis, hematuria, diarrhea and leg swelling reported. OBJECTIVE: GENERAL: No acute distress. VITAL SIGNS: Blood pressure 129/73, pulse 90, temperature 97.4 and oxygen saturation 95. HEENT: Moist mucous membranes. NECK: Supple. No JVD. RESPIRATORY: Fair airflow bilaterally. CARDIOVASCULAR: S1 and S2. ABDOMEN: Soft, nontender. No distention. Colostomy bag presently draining. EXTREMITIES: No bilateral lower extremity edema. NEUROLOGIC: Altered due to dementia. He is awake and nonverbal. MEDICATIONS: Reviewed. Tylenol 650 every 6 hours p.r.n., aspirin 325 p.o. daily, Lipitor 10 mg at dinner, Lovenox 40 mg subcu daily, folic acid 1 mg daily, Ativan 0.5 mg inhalation three times a day, Xopenex 0.63 mg inhalation three times a day, Namenda 28 mg daily, Lovaza 1 g p.o. daily, Protonix 40 mg at bedtime, Exelon patch transdermal daily and Zoloft 75 mg daily. LABORATORY DATA: Reviewed. No new labs. IMPRESSION AND PLAN: Left hemopneumothorax status post chest tube placement which was removed. Last chest x-ray showing no pneumothorax present. The patient is status post fall from home which resulted in the left rib fractures, which led to the hemopneumothorax. The patient has an history of multiple falls at home, history of atrial fibrillation, not currently on anticoagulation and family's request due to multiple falls at home. Family understands at the high risk for thromboembolic disease, history of dementia, congestive heart failure, hyperlipidemia, chronic obstructive pulmonary disease and rheumatoid arthritis. Pulmonary point of view, continue inhaled bronchodilators. Fall precautions. Aspiration precautions. Head of bed elevated 45 degrees. Pressure ulcer precautions. We recommend physical therapy for this patient. Continue to encourage incentive spirometry if able to use. Will need follow up chest x-ray. The patient was seen and examined by Dr. Flynn. Discussed assessment and plan as described above. The patient was seen and examined by Herson Delaney, nurse practitioner. Discussed assessment and plan as described above. Thank you for this consult. We will follow with you. Elaina Bains APN Haydee Flynn MD [facility]
[2019-03-13 17:11] VITALS: BP 105/62; PULSE 79; RESP 18
== END 2019-03-13 18:25 | DRG 200 ==
LOC: ED 10:48 → ERH 15:02 → 5RSO 21:43
PROVIDERS: ADMIT Internal Medicine Nephrology; ATTEND Internal Medicine
PROC: 0W9B30Z Drainage of Left Pleural Cavity with Drainage Device, Percutaneous Approach (ICD-10-PCS; principal; 2019-03-08)
DX: S27.2XXA Traumatic hemopneumothorax, initial encounter (principal); S22.42XA Multiple fractures of ribs, left side, initial encounter for closed fracture; I13.0 Hypertensive heart and chronic kidney disease with heart failure and stage 1 through stage 4 chronic kidney disease, or unspecified chronic kidney disease; I50.22 Chronic systolic (congestive) heart failure; Q60.0 Renal agenesis, unilateral; N18.9 Chronic kidney disease, unspecified; T79.7XXA Traumatic subcutaneous emphysema, initial encounter; I48.2 Chronic atrial fibrillation; G30.9 Alzheimer's disease, unspecified; F02.80 Dementia in other diseases classified elsewhere, unspecified severity, without behavioral disturbance, psychotic disturbance, mood disturbance, and anxiety; J44.9 Chronic obstructive pulmonary disease, unspecified; M06.9 Rheumatoid arthritis, unspecified; N40.0 Benign prostatic hyperplasia without lower urinary tract symptoms; I25.10 Atherosclerotic heart disease of native coronary artery without angina pectoris; E78.5 Hyperlipidemia, unspecified; F32.9 Major depressive disorder, single episode, unspecified; R29.6 Repeated falls; Y92.009 Unspecified place in unspecified non-institutional (private) residence as the place of occurrence of the external cause; W19.XXXA Unspecified fall, initial encounter; Z85.038 Personal history of other malignant neoplasm of large intestine; Z93.3 Colostomy status; Z87.891 Personal history of nicotine dependence; Z79.82 Long term (current) use of aspirin